=== PATIENT | male | born 1985 | race Caucasian/White ===

== ENCOUNTER 2019-12-15 12:19 | Emergency (ER) | payer MEDICARE ==
[~2019-12-15] VITALS: Ht 170 cm; Wt 67.0 kg
--- NOTE | 2019-12-15 12:31 | ED General ---
General Chief Complaint: Male Reproductive Stated Complaint: INTOXICATION Source of Information: Patient, EMS Exam Limitations: No Limitations History of Present Illness Date Seen by Provider: Dec 15, 2019 Time Seen by Provider: 12:28 Initial Comments To ER per EMS from home with reports of red semen. He noticed this yesterday when masturbating. Upon EMS arrival he was also noted to be intoxicated and states he would like detox. States that he drinks beer, not hard liquor and is unable to tell me how much she drinks every day but believes that he said more than 12 beers already today. He denies any pelvic pain, denies any injury or trauma to the pelvic region, denies any history of putting anything in his ureth ra. Timing/Duration: 1-2 Days Severity: Moderate Associated Systoms: No Nausea/Vomiting Allergies and Home Medications Allergies Coded Allergies: No Known Drug Allergies (Unverified , 12/15/19) Home Medications Doxycycline Hyclate 100 Mg Tablet, 100 MG PO BID Prescribed by: BHARATH DOUGLASS on 12/15/19 1401 Patient Home Medication List Home Medication List Reviewed: Yes Review of Systems Review of Systems Constitutional: see HPI; No chills, No fever EENTM: see HPI Respiratory: no symptoms reported Cardiovascular: no symptoms reported Genitourinary: see HPI, other (hematospermia) Musculoskeletal: no symptoms reported Skin: no symptoms reported Psychiatric/Neurological: No Symptoms Reported Hematologic/Lymphatic: No Symptoms Reported Immunological/Allergic: no symptoms reported Physical Exam Vital Signs Vital Signs - First Documented 12/15/19 12:25 Temp 36.8 Pulse 96 Resp 20 B/P (MAP) 145/102 (116) Pulse Ox 99 O2 Delivery Room Air Capillary Refill : Height, Weight, BMI Height: '" Weight: lbs. oz. kg; BMI Method: General Appearance: No Apparent Distress, WD/WN, Other (immediately upon arrival to ER he requests "something for panic".) Eyes: Bilateral Eye Normal Inspection, Bilateral Eye PERRL, Bilateral Eye EOMI HEENT: PERRL/EOMI, TMs Normal Neck: Full Range of Motion, Normal Inspection Respiratory: Normal Breath Sounds, No Accessory Muscle Use, No Respiratory Distress Cardiovascular: Regular Rate, Rhythm, Normal Peripheral Pulses Gastrointestinal: Normal Bowel Sounds, Non Tender, Soft Genital/Rectal: Other (genital exam done with Joselito BONILLA at the bedside, patient only has 1 testicle which is believed to be the right testicle. He states that he had one of them removed following and "bladder infection". The testicle is normal size and without tenderness to palpation.) Extremity: Normal Capillary Refill, Normal Inspection Neurologic/Psychiatric: Alert, Oriented x3 Skin: Normal Color, Warm/Dry Progress/Results/Core Measures Suspected Sepsis SIRS Temperature: Pulse: Respiratory Rate: Laboratory Tests 12/15/19 12:30: White Blood Count 5.5 Blood Pressure / Mean: Laboratory Tests 12/15/19 12:30: Creatinine 0.79, INR Comment 0.8, Platelet Count 244, Total Bilirubin 0.3 Results/Orders Lab Results Laboratory Tests Test 12/15/19 12:30 12/15/19 12:40 Range/Units White Blood Count 5.5 4.3-11.0 10^3/uL Red Blood Count 4.51 4.35-5.85 10^6/uL Hemoglobin 15.3 13.3-17.7 G/DL Hematocrit 45 40-54 % Mean Corpuscular Volume 100 H 80-99 FL Mean Corpuscular Hemoglobin 34 25-34 PG Mean Corpuscular Hemoglobin Concent 34 32-36 G/DL Red Cell Distribution Width 11.9 10.0-14.5 % Platelet Count 244 130-400 10^3/uL Mean Platelet Volume 8.6 7.4-10.4 FL Neutrophils (%) (Auto) 59 42-75 % Lymphocytes (%) (Auto) 29 12-44 % Monocytes (%) (Auto) 10 0-12 % Eosinophils (%) (Auto) 0 0-10 % Basophils (%) (Auto) 1 0-10 % Neutrophils # (Auto) 3.3 1.8-7.8 X 10^3 Lymphocytes # (Auto) 1.6 1.0-4.0 X 10^3 Monocytes # (Auto) 0.6 0.0-1.0 X 10^3 Eosinophils # (Auto) 0.0 0.0-0.3 10^3/uL Basophils # (Auto) 0.1 0.0-0.1 10^3/uL Prothrombin Time 11.5 L 12.2-14.7 SEC INR Comment 0.8 0.8-1.4 Sodium Level 138 135-145 MMOL/L Potassium Level 4.0 3.6-5.0 MMOL/L Chloride Level 99 98-107 MMOL/L Carbon Dioxide Level 22 21-32 MMOL/L Anion Gap 17 H 5-14 MMOL/L Blood Urea Nitrogen 12 7-18 MG/DL Creatinine 0.79 0.60-1.30 MG/DL Estimat Glomerular Filtration Rate > 60 BUN/Creatinine Ratio 15 Glucose Level 84 70-105 MG/DL Calcium Level 8.8 8.5-10.1 MG/DL Corrected Calcium 8.5-10.1 MG/DL Total Bilirubin 0.3 0.1-1.0 MG/DL Aspartate Amino Transf (AST/SGOT) 111 H 5-34 U/L Alanine Aminotransferase (ALT/SGPT) 85 H 0-55 U/L Alkaline Phosphatase 99 40-136 U/L Total Protein 7.6 6.4-8.2 GM/DL Albumin 4.6 H 3.2-4.5 GM/DL Serum Alcohol 398 *H <10 MG/DL Urine Color YELLOW Urine Clarity CLEAR Urine pH 7.0 5-9 Urine Specific Simpson <=1.005 1.016-1.022 Urine Protein NEGATIVE NEGATIVE Urine Glucose (UA) NEGATIVE NEGATIVE Urine Ketones NEGATIVE NEGATIVE Urine Nitrite NEGATIVE NEGATIVE Urine Bilirubin NEGATIVE NEGATIVE Urine Urobilinogen 0.2 < = 1.0 MG/DL Urine Leukocyte Esterase NEGATIVE NEGATIVE Urine RBC (Auto) NEGATIVE NEGATIVE Urine RBC NONE /HPF Urine WBC NONE /HPF Urine Crystals NONE /LPF Urine Bacteria NEGATIVE /HPF Urine Casts NONE /LPF Urine Mucus NEGATIVE /LPF Urine Culture Indicated NO My Orders Orders - BHARATH DOUGLASS APRN Cbc With Automated Diff (12/15/19 12:26) Comprehensive Metabolic Panel (12/15/19 12:26) Alcohol (12/15/19 12:26) Ua Culture If Indicated (12/15/19 12:26) Neis Javan Dna Urine Test (12/15/19 12:26) Chlamydia Trachomatis Urine (12/15/19 12:26) Ed Iv/Invasive Line Start (12/15/19 12:26) Protime With Inr (12/15/19 12:26) Alprazolam Tablet (Xanax Tablet) (12/15/19 12:45) Us Scrotum (Testicle) [id number] (12/15/19 12:39) Lactated Ringers (Lr 1000 Ml Iv Solution (12/15/19 13:15) Vital Signs/I&O 12/15/19 12:25 Temp 36.8 Pulse 96 Resp 20 B/P (MAP) 145/102 (116) Pulse Ox 99 O2 Delivery Room Air Capillary Refill : Diagnostic Imaging Comments NAME: [facility] REC#: [id number] PT STATUS: REG ER : 1985 PHYSICIAN: BHARATH DOUGLASS APRN ADMIT DATE: 12/15/19/ER Signed Date of Exam:12/15/19 US SCROTUM (Testicle) [id number] PROCEDURE: US Scrotum. TECHNIQUE: Multiple real-time grayscale images were obtained over the scrotum in various projections bilaterally. INDICATION: Blood in semen. COMPARISON: None available. FINDINGS: The left testicle and left epididymis are not visualized, surgically absent per provided history. The right testicle measures 4.1 x 1.7 x 2.4 cm. The right testicle demonstrates slightly heterogeneous echotexture without discrete intratesticular mass. Some though minimal blood flow is identified within the right testicle. The right epididymis is unremarkable. No significant hydrocele. No significant varicocele. IMPRESSION: Mildly heterogeneous echotexture of the right testicle without intratesticular mass. Blood flow within the right testicle does appear to be present though slightly decreased when compared to normal. Left orchiectomy. Dictated by: Dictated on workstation # [id number] Dict: 12/15/19 1343 Trans: 12/15/19 1350 [facility] [id number] Interpreted by: BEKAH CONNER MD Electronically signed by: BEKAH CONNER MD 12/15/19 1350 Departure Communication (Admissions) 1355-patient ripped out his IV began screaming and states he does not want to stay here any longer. He is screaming and yelling cursing at staff and ran out of the emergency room. Ultrasound does show reduced flow to the right testicle. Discussed with him the importance of following up on the results of this and not bleeding. He insisted on leaving but he is intoxicated because he is at risk of serious permanent danger because of this reduced flow to the testicle police were called. [address] Thomas, recommends Bactrim DS, repeat ultrasound in 3 weeks.- [id number]-[facility] here, we will transport home via logistic care which is [place] [employer]. Patient is sitting are waiting room eating chips waiting on them to arrive. Impression Primary Impression: Hematospermia Additional Impression: Alcohol intoxication Disposition: 01 HOME, SELF-CARE Condition: Stable Departure-Patient Inst. Decision time for Depature: 13:59 Add. Discharge Instructions: 1. Take antibiotics as directed 2. Follow-up with [facility] for a recheck on the ultrasound in about 3 weeks. Return to ER in the meantime for any pain worsening symptoms or other concerns. All discharge instructions reviewed with patient and/or family. Voiced understanding. Scripts Doxycycline Hyclate (Doxycycline Hyclate) 100 Mg Tablet 100 MG PO BID, #20 TAB 0 Refills Prov: BHARATH DOUGLASS APRN 12/15/19 Copy Copies To 1: CURRY FUNG PETER J APRN Dec 15, 2019 12:31
[2019-12-15 12:43] LABS: BASOPHILS # (AUTO) 0.1 10^3/uL (0.0-0.1); BASOPHILS % (AUTO) 1 % (0-10); EOSINOPHILS % (AUTO) 0 % (0-10); HEMATOCRIT 45 % (40-54); HEMOGLOBIN 15.3 G/DL (13.3-17.7); LYMPHOCYTES # (AUTO) 1.6 X 10^3 (1.0-4.0); LYMPHOCYTES % (AUTO) 29 % (12-44); MEAN CORPUSCULAR HEMOGLOBIN 34 PG (25-34); MEAN CORPUSCULAR HGB CONC 34 G/DL (32-36); MEAN CORPUSCULAR VOLUME 100 FL (80-99); MEAN PLATELET VOLUME 8.6 FL (7.4-10.4); MONOCYTES # (AUTO) 0.6 X 10^3 (0.0-1.0); MONOCYTES % (AUTO) 10 % (0-12); NEUTROPHILS # (AUTO) 3.3 X 10^3 (1.8-7.8); NEUTROPHILS % (AUTO) 59 % (42-75); PLATELET COUNT 244 10^3/uL (130-400); RED CELL DISTRIBUTION WIDTH 11.9 % (10.0-14.5); WHITE BLOOD COUNT 5.5 10^3/uL (4.3-11.0)
[2019-12-15] MEDS ORDERED: ALPRAZolam 0.5 MG (XANAX) TAB PO SCH (12:45)
[2019-12-15 12:52] LABS: BILIRUBIN,URINE NEGATIVE (NEGATIVE); CLARITY,URINE CLEAR; COLOR,URINE YELLOW; GLUCOSE, URINE (UA) NEGATIVE (NEGATIVE); KETONES,URINE NEGATIVE (NEGATIVE); LEUKOCYTE ESTERASE ,URINE NEGATIVE (NEGATIVE); NITRITE,URINE NEGATIVE (NEGATIVE); PROTEIN,URINE NEGATIVE (NEGATIVE)
[2019-12-15 12:54] LABS: INR 0.8 (0.8-1.4); PROTHROMBIN TIME PATIENT 11.5 SEC (12.2-14.7)
[2019-12-15 13:00] LABS: ALANINE AMINOTRANSFERASE 85 U/L (0-55); ALBUMIN 4.6 GM/DL (3.2-4.5); ALKALINE PHOSPHATASE 99 U/L (40-136); BILIRUBIN,TOTAL 0.3 MG/DL (0.1-1.0); BUN/CREATININE RATIO 15; CALCIUM 8.8 MG/DL (8.5-10.1); CARBON DIOXIDE 22 MMOL/L (21-32); CHLORIDE 99 MMOL/L (98-107); CREATININE SERUM 0.79 MG/DL (0.60-1.30); GFR ESTIMATED > 60; GLUCOSE 84 MG/DL (70-105); SODIUM 138 MMOL/L (135-145); TOTAL PROTEIN 7.6 GM/DL (6.4-8.2)
[2019-12-15 13:03] LABS: BACTERIA,URINE NEGATIVE /HPF
[2019-12-15] MEDS ORDERED: LACTATED RINGERS 1,000 ML IV SCH (13:15)
--- NOTE | 2019-12-15 13:45 | NUR ---
PT REQUESTING MORE MEDICATION TO HELP HIM RELAX, THIS RN ADVISED PT THAT PER BHARATH DOUGLASS PT'S ETOH LEVEL TOO HIGH TO ADMINISTER MORE MEDICATION.
[2019-12-15 13:50] VITALS: BP 121/81
--- NOTE | 2019-12-15 13:50 | NUR ---
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
--- NOTE | 2019-12-15 13:50 | NUR ---
PT BEGINS TO TRY TO RIP OFF HIS ID BRACELET AND PULL HIS IV OUT. I ASK THE PT IS HE IS WANTING TO LEAVE AMA TO WHICH HE STATES HE WANTS TO LEAVE BUT HE WANTS TO KNOW WHAT IS GOING ON. I ADVISED HIM IF HE STAYS THAT WE WILL BE ABLE TO SEE WHAT THE ULTRA SOUND RESULTS ARE BUT IT WILL BE A LITTLE BIT. PT STATES HE HAS ALREADY BEEN HERE 4 HOURS AND HE IS TIRED OF WAITING (AT THE TIME PT HAD BEEN IN THE ER 1 HOUR AND 29 MIN). PT STATED HE WAS NOT HERE FOR PILLS BUT REPEATED WAS ASKING FOR MORE MEDICATION. PT SAID HE NEEDED TO CALL FOR A RIDE AND THAT IT WOULD BE AN HOUR FOR THEM TO GET HERE TO WHICH I STATED I WOULD GET HIM A PHONE TO CALL FOR A RIDE AND HE COULD WAIT FOR THE RESULTS. PT AGAIN STARTED TO PULL AT HIS IV LINE SO I PUT ON GLOVES AND DC'D HIS IV. BHARATH DOUGLASS ENTERED THE ROOM AND BEGAN TO TRY TO GET THE PT TO TRY TO DE-ESCALATE THE SITUATION. PT BEGAN YELLING AND CURSING AT THIS RN HE WAS SLOWLY WALKING OUT OF THE ER. AT THAT POINT I CALL FOR JHONNY TO RESPOND BECAUSE THE PT SEEMED LIKE HE MIGHT GET VIOLENT. PT CONTINUED TO YELL ON HIS WAY OUT.
--- NOTE | 2019-12-15 13:50 | Diagnostic Imaging Report ---
PROCEDURE: US Scrotum. TECHNIQUE: Multiple real-time grayscale images were obtained over the scrotum in various projections bilaterally. INDICATION: Blood in semen. COMPARISON: None available. FINDINGS: The left testicle and left epididymis are not visualized, surgically absent per provided history. The right testicle measures 4.1 x 1.7 x 2.4 cm. The right testicle demonstrates slightly heterogeneous echotexture without discrete intratesticular mass. Some though minimal blood flow is identified within the right testicle. The right epididymis is unremarkable. No significant hydrocele. No significant varicocele. IMPRESSION: Mildly heterogeneous echotexture of the right testicle without intratesticular mass. Blood flow within the right testicle does appear to be present though slightly decreased when compared to normal. Left orchiectomy. Dictated by: Dictated on workstation # [id number]
--- NOTE | 2019-12-15 13:52 | NUR ---
PT REFUSED TO SIGN AMA PAPERWORK.
--- NOTE | 2019-12-15 13:55 | NUR ---
MARNI, LABORATORY GENETICIST AT FRONT WINDOW, ADVISED THAT SHE TRIED TO CALL THE TRANSPORT NUMBER FOR THE PT AND HE HUNG UP THE PHONE AND CONTINUED TO ACT UP. MARNI STATED SHE DID NOT FEEL COMFORTABLE WITH THE PT ACTING OUT AND YELLING IN THE WAITING ROOM.
[2019-12-15] MEDS ORDERED: DOXY100T2 PO (14:01)
--- NOTE | 2019-12-15 14:20 | NUR ---
PPD OFFICER HAVE BEEN TALKING WITH PT FOR A FEW MINUTES. THIS RN WENT OUT AND TOLD THE PT THAT AN RX HAD BEEN CALLED TO THE [facility] FOR HIM TO WHICH HE THANKED ME AND SAID HE BELIEVED WE JUST HAD A MIS-UNDERSTANDING. THIS RN BUMPED FISTS WITH THE PT AND ADVISED EVERYTHING WAS OK. AFTER TALKING WITH PPD IT WAS AGREED THAT THE PT COULD STAY IN THE WAITING ROOM LONG HE CONTINUED TO ACT NICE. THIS RN CALLED THE NUMBER GIVEN BY PT AND CONFIRMED THE TRANSPORT FOR THE PT. PT SITTING QUIETLY EATING SNACKS WITH NO NEEDS AT THIS TIME.
--- OUTSIDE RECORDS SUMMARY | 2019-12-17 06:23 | XMS REPORT | Continuity of Care Document ---
Author Organization Unknown Address Unknown Phone Unavailable Allergies Active Description Code Type Severity Reaction Onset Reported/Identified Relationship to Patient Clinical Status Yes No Known Drug Allergies [id number] Drug Allergy Unknown N/A 12/15/2019 Medications There is no data. Problems There is no data. Procedures There is no data. Results Test Result Range CULTURE, URINE - 09/06/19 13:35 CULTURE, URINE, ROUTINE SEE NOTE NRG Complete blood count (CBC) with automate d white blood cell (WBC) differential - 12/15/19 12:30 Blood leukocytes automated count (number/volume) 5.5 10*3/uL 4.3-11.0 Blood erythrocytes automated count (number/volume) 4.51 10*6/uL 4.35-5.85 Venous blood hemoglobin measurement (mass/volume) 15.3 g/dL 13.3-17.7 Blood hematocrit (volume fraction) 45 % 40-54 Automated erythrocyte mean corpuscular volume 100 [foz_us] 80-99 Automated erythrocyte mean corpuscular h emoglobin (mass per erythrocyte) 34 pg 25-34 Automated erythrocyte mean corpuscular h emoglobin concentration measurement (mass/volume) 34 g/dL 32-36 Automated erythrocyte distribution width ratio 11. 9 % 10.0- 14.5 Automated blood platelet count (count/volume) 244 10*3/uL 130-400 Automated blood platelet mean volume measurement 8.6 [foz_us] 7.4-10.4 Automated blood neutrophils/100 leukocytes 59 % 42-75 Automated blood lymphocytes/100 leukocytes 29 % 12-44 Blood monocytes/100 leukocytes 10 % 0-12 Automated blood eosinophils/100 leukocytes 0 % 0-10 Automated blood basophils/100 leukocytes 1 % 0-10 Blood neutrophils automated count (number/volume) 3.3 10*3 1.8-7.8 Blood lymphocytes automated count (number/volume) 1.6 10*3 1.0-4.0 Blood monocytes automated count (number/volume) 0. 6 10*3 0.0-1.0 Automated eosinophil count 0.0 10*3/uL 0 .0-0.3 Automated blood basophil count (count/volume) 0.1 10*3/uL 0.0-0.1 PT panel in platelet poor plasma by coag ulation assay - 12/15/19 12:30 Prothrombin time (PT) in platelet poor plasma by coagu lation assay 11.5 s 12.2-14.7 INR in platelet poor plasma or blood by coagulation as say 0.8 0.8-1.4 Comprehensive metabolic panel - 12/15/19 12:30 Serum or plasma sodium measurement (moles/volume) 138 mmol/L 135-145 Serum or plasma potassium measurement (moles/volume) 4.0 mmol/L 3.6-5.0 Serum or plasma chloride measurement (moles/volume) 99 mmol/L 98-107 Carbon dioxide 22 mmol/L 21-32 Serum or plasma anion gap determination (moles/volume) 17 mmol/L 5-14 Serum or plasma urea nitrogen measurement (mass/volume ) 12 mg/dL 7-18 Serum or plasma creatinine measurement (mass/volume) 0.79 mg/dL 0.60-1.30 Serum or plasma urea nitrogen/creatinine mass ratio 15 NRG Serum or plasma creatinine measurement w ith calculation of estimated glomerular filtration rate > NRG Serum or plasma glucose measurement (mass/volume) 84 mg/dL 70-105 Serum or plasma calcium measurement (mass/volume) 8.8 mg/dL 8.5-10.1 Serum or plasma total bilirubin measurement (mass/volu me) 0.3 mg/dL 0.1-1.0 Serum or plasma alkaline phosphatase carter surement (enzymatic activity/volume) 99 U/L 40-136 Serum or plasma aspartate aminotransfera se measurement (enzymatic activity/volume) 111 U/L 5-34 Serum or plasma alanine aminotransferase measurement (enzymatic activity/volume) 85 U/L 0-55 Serum or plasma protein measurement (mass/volume) 7.6 g/dL 6.4-8.2 Serum or plasma albumin measurement (mass/volume) 4.6 g/dL 3.2-4.5 Serum or plasma ethanol measurement (mas s/volume) - 12/15/19 12:30 Serum or plasma ethanol measurement (mass/volume) 398 mg/dL <10 Complete urinalysis with reflex to cultu re - 12/15/19 12:40 Urine color determination YELLOW NRG Urine clarity determination CLEAR NR G Urine pH measurement by test strip 7.0 5-9 Specific gravity of urine by test strip <= 1.016-1.022 Urine protein assay by test strip, semi-quantitative NEGATIVE NEGATIVE Urine glucose detection by automated test strip NE GATIVE NEGATIVE Erythrocytes detection in urine sediment by light micr oscopy NEGATIVE NEGATIVE Urine ketones detection by automated test strip NE GATIVE NEGATIVE Urine nitrite detection by test strip NEGATIVE NEGATIVE Urine total bilirubin detection by test strip NEGA TIVE NEGATIVE Urine urobilinogen measurement by automated test strip (mass/volume) 0.2 mg/dL < = 1.0 Urine leukocyte esterase detection by dipstick NEG ATIVE NEGATIVE Automated urine sediment erythrocyte cou nt by microscopy (number/high power field) NONE NRG Automated urine sediment leukocyte count by microscopy (number/high power field) NONE NRG Bacteria detection in urine sediment by light microsco py NEGATIVE NRG Crystals detection in urine sediment by light microsco py NONE NRG Casts detection in urine sediment by light microscopy NONE NRG Mucus detection in urine sediment by light microscopy NEGATIVE NRG Complete urinalysis with reflex to culture NO NRG Chlamydia DNA amp probe, urine - 0 12:40 Chlamydia DNA amp probe, urine Not Detected Not Detected Urine Neisseria gonorrhoeae DNA assay - 12/15/19 12:40 Gonorrhea amp DNA-urine Not Detected No t Detected Encounters ACCT No. Visit Date/Time Discharge Status Pt. Type Provider Facility Loc./Unit Complaint [id number] 08/18/2019 15:20:00 08/18/2019 23:59: 59 [id number] 09/06/2019 13:00:00 Document Registration [id number] 12/15/2019 12:22:00 020 13:50:00 DIS Emergency BHARATH DOUGLASS APRN Via [facility] ER INTOXICATION [id number] 12/15/2019 12:33:00 Document Registration
== END 2019-12-15 13:50 | disposition left against medical advice (07) ==
LOC: EDUNIT# 12:19 → ER 12:22
DX: R36.1 Hematospermia (principal); F10.129 Alcohol abuse with intoxication, unspecified; Y90.8 Blood alcohol level of 240 mg/100 ml or more
CPT/HCPCS: 36415; 76870; 80053; 80320; 81000; 85025; 85610; 87491; 87591

== ENCOUNTER 2019-12-15 16:18 | Emergency (ER) | payer MEDICARE ==
[~2019-12-15] VITALS: Ht 167.7 cm; Wt 68.5 kg
[~2019-12-15 16:18] MED LIST: DOXY100T2 PO
[2019-12-15 16:26] VITALS: BP 156/87
--- NOTE | 2019-12-15 16:29 | ED General ---
General Chief Complaint: General Problems/Pain Stated Complaint: PANIC ATTACK Source of Information: Patient Exam Limitations: No Limitations History of Present Illness Date Seen by Provider: Dec 15, 2019 Time Seen by Provider: 16:27 Initial Comments To ER with reports of panic attack secondary to a agoraphobia he states. He was here earlier for hematospermia and alcohol intoxication, left AGAINST MEDICAL ADVICE when he was only given one Xanax instead of 2. Timing/Duration: 1-2 Days Severity: Moderate Associated Systoms: Denies Symptoms Allergies and Home Medications Allergies Coded Allergies: No Known Drug Allergies (Unverified , 12/15/19) Home Medications Doxycycline Hyclate 100 Mg Tablet, 100 MG PO BID Prescribed by: BHARATH DOUGLASS on 12/15/19 1401 Patient Home Medication List Home Medication List Reviewed: Yes Review of Systems Review of Systems Constitutional: see HPI EENTM: see HPI Respiratory: no symptoms reported Cardiovascular: no symptoms reported Genitourinary: no symptoms reported Musculoskeletal: no symptoms reported Skin: no symptoms reported Psychiatric/Neurological: See HPI, Anxiety Hematologic/Lymphatic: No Symptoms Reported Immunological/Allergic: no symptoms reported Past Vsvnuuq-Kuntyf-Frmatd Hx Patient Social History Alcohol Beverage of Choice: Beer Type Used: Cigarettes, Electronic/Vapor Recent Foreign Travel: No Contact w/Someone Who Travel: No Recent Hopitalizations: No Seasonal Allergies Seasonal Allergies: Yes Past Medical History Surgeries: Yes ("MY BALLS WERE INFECTED AND I HAD TO AHVE MY GALLBLADDER REMOVED") Gallbladder Respiratory: No Cardiac: No Neurological: No Genitourinary: Yes Bladder Infection Gastrointestinal: Yes Chronic Constipation Musculoskeletal: Yes Scoliosis Endocrine: No HEENT: No Cancer: No Psychosocial: No Integumentary: No Physical Exam Vital Signs Vital Signs - First Documented 12/15/19 16:26 Temp 36.6 Pulse 124 Resp 19 B/P (MAP) 156/87 (110) O2 Delivery Room Air Capillary Refill : Height, Weight, BMI Height: '" Weight: lbs. oz. kg; 23.00 BMI Method: General Appearance: No Apparent Distress, WD/WN, Anxious HEENT: PERRL/EOMI, TMs Normal Respiratory: No Accessory Muscle Use, No Respiratory Distress Cardiovascular: Regular Rate, Rhythm, Normal Peripheral Pulses Gastrointestinal: Non Tender, Soft Extremity: Normal Capillary Refill Neurologic/Psychiatric: Alert, Oriented x3 Skin: Normal Color, Warm/Dry Progress/Results/Core Measures Suspected Sepsis SIRS Temperature: Pulse: Respiratory Rate: Blood Pressure / Mean: Results/Orders My Orders Orders - BHARATH DOUGLASS APRN Diphenhydramine Tablet (Benadryl Tablet) (12/15/19 16:30) Medications Given in ED Current Medications Medications Dose Ordered Sig/Sean Route Start Time Stop Time Status Last Admin Dose Admin Diphenhydramine HCl 50 mg ONCE ONCE PO 12/15/19 16:30 12/15/19 16:31 DC 12/15/19 16:33 50 MG Vital Signs/I&O 12/15/19 16:26 Temp 36.6 Pulse 124 Resp 19 B/P (MAP) 156/87 (110) O2 Delivery Room Air Capillary Refill : Departure Impression Primary Impression: Anxiety Disposition: 01 HOME, SELF-CARE Condition: Stable Departure-Patient Inst. Decision time for Depature: 16:39 Referrals: NO,LOCAL PHYSICIAN (PCP) Primary Care Physician Patient Instructions: Anxiety, Adult (DC) BHARATH DOUGLASS APRN Dec 15, 2019 16:29
[2019-12-15] MEDS ORDERED: diphenhydrAMINE 25 MG TAB (BENADRYL) PO ONE (16:30)
--- OUTSIDE RECORDS SUMMARY | 2019-12-17 13:35 | XMS REPORT | Continuity of Care Document ---
Author Organization Unknown Address Unknown Phone Unavailable Allergies Active Description Code Type Severity Reaction Onset Reported/Identified Relationship to Patient Clinical Status Yes No Known Drug Allergies [id number] Drug Allergy Unknown N/A 12/15/2019 Medications There [...] Status Pt. Type Provider Facility Loc./Unit Complaint [id number] 08/18/2019 15:20:00 08/18/2019 23:59: 59 [id number] 09/06/2019 13:00:00 Document Registration [id number] 12/15/2019 12:22:00 020 13:50:00 DIS Emergency BHARATH DOUGLASS APRN [facility] ER INTOXICATION [id number] 12/15/2019 12:33:00 Document Registration
== END 2019-12-15 16:42 | disposition home or self-care (01) ==
LOC: EDUNIT# 16:18 → ER 16:20
DX: F41.9 Anxiety disorder, unspecified (principal)
CPT/HCPCS: 99283

== ENCOUNTER 2020-12-26 11:13 | Day surgery (SDC) | payer MEDICARE, MEDICAID ==
[~2020-12-26] VITALS: Ht 165.2 cm; Wt 70.0 kg
[2020-12-26] MEDS ORDERED: LORazepam INJ 2 MG/ML (ATIVAN) VIAL IVP ONE (11:30)
[2020-12-26] MEDS ORDERED: PANTOPRAZOLE 40 MG (PROTONIX) VIAL IV ONE (11:30)
[2020-12-26] MEDS ORDERED: FAMOTIDINE 20MG/2ML IV (PEPCID) IVP ONE (11:30)
[2020-12-26 11:34] LABS: CLARITY,URINE CLEAR; COLOR,URINE ORANGE; GLUCOSE, URINE (UA) NEGATIVE (NEGATIVE); KETONES,URINE 1+ (NEGATIVE); LEUKOCYTE ESTERASE ,URINE NEGATIVE (NEGATIVE); NITRITE,URINE NEGATIVE (NEGATIVE); PH,URINE 6.5 (5-9); PROTEIN,URINE 1+ (NEGATIVE)
[2020-12-26 11:37] LABS: BASOPHILS % (AUTO) 1 % (0-10); EOSINOPHILS % (AUTO) 0 % (0-10); HEMATOCRIT 37 % (40-54); HEMOGLOBIN 12.9 g/dL (13.3-17.7); LYMPHOCYTES # (AUTO) 0.7 10^3/uL (1.0-4.0); LYMPHOCYTES % (AUTO) 16 % (12-44); MEAN CORPUSCULAR HEMOGLOBIN 34 pg (25-34); MEAN CORPUSCULAR HGB CONC 35 g/dL (32-36); MEAN CORPUSCULAR VOLUME 98 fL (80-99); MEAN PLATELET VOLUME 9.3 fL (9.0-12.2); MONOCYTES # (AUTO) 0.4 10^3/uL (0.0-1.0); MONOCYTES % (AUTO) 9 % (0-12); NEUTROPHILS % (AUTO) 73 % (42-75); PLATELET COUNT 182 10^3/uL (130-400); WHITE BLOOD COUNT 4.1 10^3/uL (4.3-11.0)
[2020-12-26 11:43] LABS: BACTERIA,URINE NEGATIVE /HPF; BILIRUBIN,URINE 2+ (NEGATIVE); WBC,URINE RARE /HPF
[2020-12-26 11:53] LABS: ALBUMIN 3.1 GM/DL (3.2-4.5); CHLORIDE 95 MMOL/L (98-107); POTASSIUM 4.1 MMOL/L (3.6-5.0); SODIUM 134 MMOL/L (135-145)
[2020-12-26 11:54] LABS: CALCIUM 7.9 MG/DL (8.5-10.1)
[2020-12-26 11:55] LABS: GLUCOSE 141 MG/DL (70-105); INR 0.9 (0.8-1.4); TOTAL PROTEIN 5.6 GM/DL (6.4-8.2)
[2020-12-26 11:56] LABS: CARBON DIOXIDE 22 MMOL/L (21-32)
[2020-12-26 11:57] LABS: BILIRUBIN,TOTAL 3.3 MG/DL (0.1-1.0)
[2020-12-26 11:58] LABS: ALKALINE PHOSPHATASE 100 U/L (40-136)
[2020-12-26 11:59] LABS: CREATININE SERUM 1.13 MG/DL (0.60-1.30); GFR ESTIMATED > 60
[2020-12-26 12:00] LABS: BUN/CREATININE RATIO 18
[2020-12-26 12:02] LABS: ALANINE AMINOTRANSFERASE 324 U/L (0-55); MAGNESIUM 1.5 MG/DL (1.6-2.4)
[2020-12-26 12:03] LABS: LIPASE 38 U/L (8-78)
--- NOTE | 2020-12-26 12:42 | ED GI ---
General Chief Complaint: General Problems/Pain Stated Complaint: ETOH Nursing Triage Note: TO ED PER [facility] PATIENT DRINKS 12 BEERS DAILY AND BEEN VOMITING FOR MONTHS THIS AM STARTED HAVING BLACK TAREY STOOL AND NOTICED DARK IN HIS VOMIT Sepsis Screen: No Definite Risk Source of Information: Patient Exam Limitations: No Limitations History of Present Illness Date Seen by Provider: Dec 26, 2020 Time Seen by Provider: 11:15 Initial Comments This 35-year-old man presents to the emergency room via EMS with complaints of coffee-ground emesis and black tarry stools that started in the night. He has been vomiting almost every morning for couple of months. He typically drinks about 10 beers per day. He reports about a month ago he was able to taper down and quit drinking for about 2 weeks. He has been drinking heavily again for the past couple of weeks. He has not had any alcohol today and he is starting to withdraw. Vital signs are stable but he does have tremors. He reports having an EGD many years ago but does not recall being told he had any pathology. Allergies and Home Medications Allergies Coded Allergies: No Known Drug Allergies (Unverified , 12/15/19) Home Medications Doxycycline Hyclate 100 Mg Tablet, 100 MG PO BID Prescribed by: BHARATH DOUGLASS on 12/15/19 1401 Patient Home Medication List Home Medication List Reviewed: Yes Review of Systems Review of Systems Constitutional: no symptoms reported EENTM: No Symptoms Reported Respiratory: No Symptoms Reported Cardiovascular: No Symptoms Reported Gastrointestinal: See HPI Genitourinary: No Symptoms Reported Musculoskeletal: no symptoms reported Skin: no symptoms reported Psychiatric/Neurological: See HPI Endocrine: No Symptoms Reported Hematologic/Lymphatic: No Symptoms Reported Past Xmjaeyy-Zurfnx-Mqqpsa Hx Past Med/Social Hx: Reviewed Nursing Past Med/Soc Hx Patient Social History Alcohol Use: Regular Use Number of Drinks Today: AA Alcohol Beverage of Choice: Beer Smoking Status: Current Everyday Smoker Type Used: Cigarettes, Electronic/Vapor Recent Infectious Disease Expo: No Recent Hopitalizations: No Seasonal Allergies Seasonal Allergies: Yes Past Medical History Surgeries: Yes ("MY BALLS WERE INFECTED AND I HAD TO AHVE MY GALLBLADDER REMOVED") Gallbladder Respiratory: No Cardiac: Yes Hypertension Neurological: No Genitourinary: Yes Bladder Infection Gastrointestinal: Yes Gastroesophageal Reflux, Chronic Constipation Musculoskeletal: Yes Scoliosis Endocrine: No HEENT: No Cancer: No Psychosocial: Yes (Alcohol dependence) Integumentary: No Physical Exam Vital Signs Vital Signs - First Documented 12/26/20 11:15 Temp 36.1 Pulse 86 Resp 18 B/P (MAP) 110/75 (87) Pulse Ox 100 O2 Delivery Room Air Capillary Refill : Less Than 3 Seconds Height/Weight/BMI Height: '" Weight: lbs. oz. 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, no motor/sensory deficits, alert, normal mood/affect, oriented x 3, other (Tremor) Skin: normal color, warm/dry Progress/Results/Core Measures Results/Orders Lab Results Laboratory Tests Test 12/26/20 11:30 Range/Units White Blood Count 4.1 L 4.3-11.0 10^3/uL Red Blood Count 3.82 L 4.30-5.52 10^6/uL Hemoglobin 12.9 L 13.3-17.7 g/dL Hematocrit 37 L 40-54 % Mean Corpuscular Volume 98 80-99 fL Mean Corpuscular Hemoglobin 34 25-34 pg Mean Corpuscular Hemoglobin Concent 35 32-36 g/dL Red Cell Distribution Width 13.9 10.0-14.5 % Platelet Count 182 130-400 10^3/uL Mean Platelet Volume 9.3 9.0-12.2 fL Immature Granulocyte % (Auto) 1 % Neutrophils (%) (Auto) 73 42-75 % Lymphocytes (%) (Auto) 16 12-44 % Monocytes (%) (Auto) 9 0-12 % Eosinophils (%) (Auto) 0 0-10 % Basophils (%) (Auto) 1 0-10 % Neutrophils # (Auto) 3.0 1.8-7.8 10^3/uL Lymphocytes # (Auto) 0.7 L 1.0-4.0 10^3/uL Monocytes # (Auto) 0.4 0.0-1.0 10^3/uL Eosinophils # (Auto) 0.0 0.0-0.3 10^3/uL Basophils # (Auto) 0.0 0.0-0.1 10^3/uL Immature Granulocyte # (Auto) 0.0 0.0-0.1 10^3/uL Prothrombin Time 13.0 12.2-14.7 SEC INR Comment 0.9 0.8-1.4 Urine Color ORANGE Urine Clarity CLEAR Urine pH 6.5 5-9 Urine Specific [place] 1.025 H 1.016-1.022 Urine Protein 1+ H NEGATIVE Urine Glucose (UA) NEGATIVE NEGATIVE Urine Ketones 1+ H NEGATIVE Urine Nitrite NEGATIVE NEGATIVE Urine Bilirubin 2+ H NEGATIVE Urine Urobilinogen 1.0 < = 1.0 MG/DL Urine Leukocyte Esterase NEGATIVE NEGATIVE Urine RBC (Auto) NEGATIVE NEGATIVE Urine RBC NONE /HPF Urine WBC RARE /HPF Urine Squamous Epithelial Cells NONE /HPF Urine Crystals NONE /LPF Urine Bacteria NEGATIVE /HPF Urine Casts PRESENT /LPF Urine Hyaline Casts 2-5 H /LPF Urine Mucus LARGE H /LPF Urine Culture Indicated NO Sodium Level 134 L 135-145 MMOL/L Potassium Level 4.1 3.6-5.0 MMOL/L Chloride Level 95 L 98-107 MMOL/L Carbon Dioxide Level 22 21-32 MMOL/L Anion Gap 17 H 5-14 MMOL/L Blood Urea Nitrogen 20 H 7-18 MG/DL Creatinine 1.13 0.60-1.30 MG/DL Estimat Glomerular Filtration Rate > 60 BUN/Creatinine Ratio 18 Glucose Level 141 H 70-105 MG/DL Calcium Level 7.9 L 8.5-10.1 MG/DL Corrected Calcium 8.6 8.5-10.1 MG/DL Magnesium Level 1.5 L 1.6-2.4 MG/DL Total Bilirubin 3.3 H 0.1-1.0 MG/DL Aspartate Amino Transf (AST/SGOT) 433 H 5-34 U/L Alanine Aminotransferase (ALT/SGPT) 324 H 0-55 U/L Alkaline Phosphatase 100 40-136 U/L C-Reactive Protein High Sensitivity 0.06 0.00-0.50 MG/DL Total Protein 5.6 L 6.4-8.2 GM/DL Albumin 3.1 L 3.2-4.5 GM/DL Lipase 38 8-78 U/L Serum Alcohol < 10 <10 MG/DL My Orders Orders - GEOVANNI LAW MD Alcohol (12/26/20 11:21) Cbc With Automated Diff (12/26/20 11:21) Comprehensive Metabolic Panel (12/26/20 11:21) Hs C Reactive Protein (12/26/20 11:21) Lipase (12/26/20 11:21) Magnesium (12/26/20 11:21) Protime With Inr (12/26/20 11:21) Ua Culture If Indicated (12/26/20 11:21) Lorazepam Injection (Ativan Injection) (12/26/20 11:30) Famotidine Injection (Pepcid Injection) (12/26/20 11:30) Pantoprazole Injection (Protonix Injecti (12/26/20 11:30) Medications Given in ED Current Medications Medications Dose Ordered Sig/Sean Route Start Time Stop Time Status Last Admin Dose Admin Famotidine 20 mg ONCE ONCE IVP 12/26/20 11:30 12/26/20 11:31 DC 12/26/20 11:36 20 MG Lorazepam 2 mg ONCE ONCE IVP 12/26/20 11:30 12/26/20 11:31 DC 12/26/20 11:32 2 MG Pantoprazole 80 mg ONCE ONCE IV 12/26/20 11:30 12/26/20 11:31 DC 12/26/20 11:36 80 MG Vital Signs/I&O 12/26/20 12/26/20 11:15 12:12 Temp 36.1 Pulse 86 98 Resp 18 18 B/P (MAP) 110/75 (87) 113/75 (88) Pulse Ox 100 97 O2 Delivery Room Air Room Air Blood Pressure Mean: 88 Progress Progress Note : Time: 12:47 Progress Note Patient was seen and examined. He was given Ativan 2 mg IV for withdrawal. IV fluids were infused. He was treated with Protonix 80 mg and Pepcid 20 mg. Zofran was administered by EMS. He had no further vomiting or melena while in the ER. I am a little concerned about this patient due to subjective evidence of GI bleed through emesis and stool in combination with his symptoms suggestive of alcohol withdrawal. I have suggested admission for observation as patient requested. This was discussed with Dr. Catherine and Dr. Méndez who are agreeable. Departure Communication (Admissions) Time/Spoke to Admitting Phy: 12:25 Dr. Catherine Time/Spoke to Consulting Phy: 12:30 Dr. Méndez Impression Primary Impression: Coffee ground emesis Additional Impressions: Melena Alcohol withdrawal Qualified Codes: F10.239 - Alcohol dependence with withdrawal, unspecified Disposition: ADMITTED INPATIENT Condition: Improved Admissions Decision to Admit Reason: Admit from ER (General) Decision to Admit/Date: Dec 26, 2020 Time/Decision to Admit Time: 12:25 Departure-Patient Inst. Referrals: NO,LOCAL PHYSICIAN (PCP/Family) Primary Care Physician GEOVANNI LAW MD Dec 26, 2020 12:42
[2020-12-26 13:56] VITALS: BP 116/76
[2020-12-26] MEDS ORDERED: PANT20TA18 PO (14:59)
[2020-12-26] MEDS ORDERED: MULT-1136 PO (14:59)
[2020-12-26] MEDS ORDERED: METO50TA7 PO (14:59)
[2020-12-26] MEDS ORDERED: LISI40TA9 PO (14:59)
[2020-12-26] MEDS ORDERED: BUSP5TAB59 PO (14:59)
[2020-12-26] MEDS ORDERED: TRAZ-227 PO (14:59)
[2020-12-26] MEDS ORDERED: [UNRECOGNIZED DRUG - OTHER] PO (14:59)
[2020-12-26] MEDS ORDERED: [UNRECOGNIZED DRUG - REMARK] PO (14:59)
[2020-12-26] MEDS ORDERED: LORazepam INJ 2 MG/ML (ATIVAN) VIAL IM/IV PRN (15:00)
[2020-12-26] MEDS ORDERED: ONDANSETRON 4 MG/2 ML (SDV) Z0FRAN IVP PRN (15:00)
[2020-12-26] MEDS ORDERED: ONDANSETRON 4 MG/2 ML (SDV) Z0FRAN IV PRN (15:00)
[2020-12-26] MEDS ORDERED: 1/2 NS IV SOLUTION 1,000 ML IV PRN (15:00)
[2020-12-26] MEDS ORDERED: ANTACID SUSP 30 ML UDC (MYLANTA) PO PRN (15:00)
[2020-12-26] MEDS ORDERED: D5 1/2 NS W/KCL 20 MEQ/L 1,000 ML IV SCH (15:00)
[2020-12-26] MEDS ORDERED: SENNA W/DOCUSATE (SENOKOT S) TABLET PO PRN (15:00)
[2020-12-26] MEDS ORDERED: LORazepam 1 MG (ATIVAN) TAB PO PRN (15:00)
[2020-12-26] MEDS ORDERED: LACTATED RINGERS 1,000 ML IV SCH (15:00)
[2020-12-26] MEDS ORDERED: ONDANSETRON 4 MG (ZOFRAN) ORAL DISSOLVE TAB SL PRN (15:00)
[2020-12-26] MEDS ORDERED: D5 1/2 NS 1000 ML IV SOLUTION 1,000 ML IV PRN (15:00)
[2020-12-26 15:21] VITALS: BP 108/67
[2020-12-26] MEDS: LORazepam INJ 2 MG/ML (ATIVAN) VIAL IV PRN ×2 (16:03→17:27)
--- NOTE | 2020-12-26 16:38 | Consultation - Surgery ---
NYLAJEMMA MED STUDENT 12/26/20 1638: History of Present Illness History of Present Illness Patient Consulted On(dusty/time) 12/26/20 16:37 Date Seen by Provider: Dec 26, 2020 Time Seen by Provider: 16:30 History of Present Illness Per ED "This 35-year-old man presents to the emergency room via EMS with complaints of coffee-ground emesis and black tarry stools that started in the night. He has been vomiting almost every morning for couple of months. He typically drinks about 10 beers per day. He reports about a month ago he was able to taper down and quit drinking for about 2 weeks. He has been drinking heavily again for the past couple of weeks. He has not had any alcohol today and he is starting to withdraw. Vital signs are stable but he does have tremors. He reports having an EGD many years ago but does not recall being told he had any pathology." "Patient was seen and examined. He was given Ativan 2 mg IV for withdrawal. IV fluids were infused. He was treated with Protonix 80 mg and Pepcid 20 mg. Zof ran was administered by EMS. He had no further vomiting or melena while in the ER. I am a little concerned about this patient due to subjective evidence of GI bleed through emesis and stool in combination with his symptoms suggestive of alcohol withdrawal. I have suggested admission for observation as patient requested. This was discussed with Dr. Catherine and Dr. Méndez who are agreeable." Patient is sitting up in bed. States that he does not have epigastric pain. States that he feels a fullness that is uncomfortable that he will drink water to try and make himself throw up. States he does get a kind of jolting or sharp pain in his RLQ sometimes that is about a 3 or 4 and radiates throughout that region. States today is the first time he has had tarry stools but he has had coffee ground emesis before about 8 years ago. States he has vomited twice today. States he was scoped and got colonoscopy at the time, said he was told the bleed resolved and he ate soft foods to get better. He does complain of constipation and difficulty voiding. He has a noticeable tremor during interview. Allergies and Home Medications Allergies Coded Allergies: No Known Drug Allergies (Unverified , 3/13/20) Home Medications Buspirone HCl 5 Mg Tablet, 5 MG PO BID, (Reported) Lisinopril 40 Mg Tablet, 40 MG PO DAILY, (Reported) Metoprolol Succinate 50 Mg Tab.er.24h, 50 MG PO DAILY, (Reported) Multivitamin 1 Each Tablet, 1 EACH PO DAILY, (Reported) Pantoprazole Sodium 20 Mg Tablet.dr, 20 MG PO DAILY, (Reported) Trazodone HCl 100 Mg Tablet, 100 MG PO HS, (Reported) [Florajen Pre] , 1 EA PO DAILY, (Reported) [Rhin Allergy ] , 1 EACH PO UD PRN for ALLERGY SYMPTOMS, (Reported) Past Cljoadt-Ausvjh-Osiayt Hx Patient Social History Number of Drinks Today: AA Smoking Status: Current Everyday Smoker Type Used: Cigarettes, Electronic/Vapor Recent Hopitalizations: No Alcohol Use?: Yes (States 10-20 is his norm) Substance type: Nicotine Have you traveled recently?: No Seasonal Allergies Seasonal Allergies: Yes Surgeries History of Surgeries: Yes ("MY BALLS WERE INFECTED AND I HAD TO AHVE MY GALLBLADDER REMOVED") Surgeries: Abdominal (EGD, Colonoscopy x1), Gallbladder, Orthopedic (Jaw ) Respiratory History of Respiratory Disorde: No Cardiovascular History of Cardiac Disorders: Yes Cardiac Disorders: Hypertension Neurological History of Neurological Disord: No Genitourinary History of Genitourinary Disor: Yes Genitourinary Disorders: Bladder Infection Gastrointestinal History of Gastrointestinal Di: Yes Gastrointestinal Disorders: Gastroesophageal Reflux, Chronic Constipation Musculoskeletal History of Musculoskeletal Dis: Yes Musculoskeletal Disorders: Scoliosis Endocrine History of Endocrine Disorders: No HEENT History of HEENT Disorders: No Cancer History of Cancer: No Psychosocial History of Psychiatric Problem: Yes (Alcohol dependence) Behavioral Health Disorders: Depression Integumentary History of Skin or Integumenta: No Family Medical History Significant Family History: Cancer (Skin-Father), Diabetes (Father), Hypertension (Father) Review of Systems-General Constitutional: No chills, No fever EENTM: No vision loss Respiratory: No cough, No hemoptysis, No phlegm, No short of breath Cardiovascular: No chest pain, No edema, No palpitations Gastrointestinal: abdominal pain (RLQ), constipation, hematemesis (Coffe ground), melena, nausea, vomiting (Last Episode this morning) Genitourinary: hesitancy ("Hard to start stream, has to go every 10 mins") Musculoskeletal: No joint pain Skin: No rash Psychiatric/Neurological: Denies Headache; Tremors (Hands) Physical Exam-General Problems Physical Exam Vital Signs Vital Signs - First Documented 12/26/20 11:15 Temp 36.1 Pulse 86 Resp 18 B/P (MAP) 110/75 (87) Pulse Ox 100 O2 Delivery Room Air Capillary Refill : Less Than 3 Seconds General Appearance: no apparent distress Respiratory: chest non-tender, lungs clear, normal breath sounds, no resp iratory distress, no accessory muscle use Cardiovascular: regular rate, rhythm, no edema, no murmur Peripheral Pulses: 2+ Radial Pulses (R), 2+ Radial Pulses (L) Gastrointestinal: normal bowel sounds, non tender, soft Rectal: deferred Extremities: non-tender, no pedal edema, no calf tenderness Neurologic/Psychiatric: alert, oriented x 3 Skin: normal color, warm/dry Data Review Labs Laboratory Tests 12/26/20 11:30: White Blood Count 4.1L, Red Blood Count 3.82L, Hemoglobin 12.9L, Hematocrit 37L, Mean Corpuscular Volume 98, Mean Corpuscular Hemoglobin 34, Mean Corpuscular Hemoglobin Concent 35, Red Cell Distribution Width 13.9, Platelet Count 182, Mean Platelet Volume 9.3, Immature Granulocyte % (Auto) 1, Neutrophils (%) (Auto) 73, Lymphocytes (%) (Auto) 16, Monocytes (%) (Auto) 9, Eosinophils (%) (Auto) 0, Basophils (%) (Auto) 1, Neutrophils # (Auto) 3.0, Lymphocytes # (Auto) 0.7L, Monocytes # (Auto) 0.4, Eosinophils # (Auto) 0.0, Basophils # (Auto) 0.0, Immature Granulocyte # (Auto) 0.0, Prothrombin Time 13.0, INR Comment 0.9, Urine Color ORANGE, Urine Clarity CLEAR, Urine pH 6.5, Urine Specific [place] 1.025H, Urine Protein 1+H, Urine Glucose (UA) NEGATIVE, Urine Ketones 1+H, Urine Nitrite NEGATIVE, Urine Bilirubin 2+H, Urine Urobilinogen 1.0, Urine Leukocyte Esterase NEGATIVE, Urine RBC (Auto) NEGATIVE, Urine RBC NONE, Urine WBC RARE, Urine Squamous Epithelial Cells NONE, Urine Crystals NONE, Urine Bacteria NEGATIVE, Urine Casts PRESENT, Urine Hyaline Casts 2-5H, Urine Mucus LARGEH, Urine Culture Indicated NO, Sodium Level 134L, Potassium Level 4.1, Chloride Level 95L, Carbon Dioxide Level 22, Anion Gap 17H, Blood Urea Nitrogen 20H, Creatinine 1.13, Kathy mat Glomerular Filtration Rate > 60, BUN/Creatinine Ratio 18, Glucose Level 141H , Calcium Level 7.9L, Corrected Calcium 8.6, Magnesium Level 1.5L, Total Bilirubin 3.3H, Aspartate Amino Transf (AST/SGOT) 433H, Alanine Aminotransferase (ALT/SGPT) 324H, Alkaline Phosphatase 100, C-Reactive Protein High Sensitivity 0.06, Total Protein 5.6L, Albumin 3.1L, Lipase 38, Serum Alcohol < 10 Assessment/Plan Assessment/Plan Assessment/Plan Melena and Coffee ground emesis -Patient stable, HGB 12.9, has not had a recent episode of vomiting -EGD/Colonoscopy tomorrow to identify possible bleed and repair -Antiacid and anti-nausea medication -NPO tonight for procedure tomorrow -CBCs to follow HGB -Alcohol Dependence -Pt has noticable tremor, states 10-20 beers usual for him -Given ativan in ED, stated it helped, Continue to give as needed to avoid DT -pt receiving thiamine -Offer counseling at discharge or help pt get to AA meeting -Anemia -Pt admitted with HGB of 12.9 -Continue to check w/ CBC -Pt does not appear to be losing large amounts of blood at this time -IV fluids if BP gets too low LIZ MÉNDEZ DO 12/26/201928: History of Present Illness History of Present Illness Time Seen by Provider: 17:23 History of Present Illness Surgery asked to consult regarding coffee ground emesis. When I spoke to pt he states this happened to him about 8 yrs ago, but what sca red him this time was the "black poop". He had EGD 8 yrs ago; but stated "they told me everything resolved by the time they looked." Allergies and Home Medications Allergies Coded Allergies: No Known Drug Allergies (Unverified , 12/15/19) Home Medications Buspirone HCl 5 Mg Tablet, 5 MG PO BID, (Reported) Lisinopril 40 Mg Tablet, 40 MG PO DAILY, (Reported) Metoprolol Succinate 50 Mg Tab.er.24h, 50 MG PO DAILY, (Reported) Multivitamin 1 Each Tablet, 1 EACH PO DAILY, (Reported) Pantoprazole Sodium 20 Mg Tablet.dr, 20 MG PO DAILY, (Reported) Trazodone HCl 100 Mg Tablet, 100 MG PO HS, (Reported) [Florajen Pre] , 1 EA PO DAILY, (Reported) [Rhin Allergy ] , 1 EACH PO UD PRN for ALLERGY SYMPTOMS, (Reported) Patient Home Medication List Home Medication List Reviewed: Yes Past Cxlekmo-Slbxhn-Sbvsow Hx Patient Social History Alcohol Use?: Yes (States 10-20 is his norm) Surgeries History of Surgeries: Yes Surgeries: Abdominal (EGD, Colonoscopy x1), Gallbladder, Orthopedic (Jaw ) Respiratory History of Respiratory Disorde: No Cardiovascular History of Cardiac Disorders: Yes Cardiac Disorders: Hypertension Neurological History of Neurological Disord: No Genitourinary History of Genitourinary Disor: No Gastrointestinal History of Gastrointestinal Di: Yes Gastrointestinal Disorders: Gastroesophageal Reflux, Gastrointestinal Bleed Musculoskeletal History of Musculoskeletal Dis: No Endocrine History of Endocrine Disorders: No HEENT History of HEENT Disorders: No Loss of Vision: Denies Hearing Impairment: Denies Cancer History of Cancer: No Psychosocial History of Psychiatric Problem: Yes Behavioral Health Disorders: Depression Integumentary History of Skin or Integumenta: No Family Medical History Significant Family History: Cancer (Skin-Father), Diabetes (Father), Hypertension (Father) Review of Systems-General Constitutional: No chills, No fever EENTM: No vision loss, No mouth swelling, No epistaxis, No throat swelling Respiratory: No cough, No hemoptysis, No phlegm, No short of breath Cardiovascular: No chest pain, No edema, No palpitations Gastrointestinal: abdominal pain (RLQ), constipation, hematemesis (Coffe ground), melena, nausea, vomiting (Last Episode this morning) Genitourinary: No dysuria, No hematuria; hesitancy ("Hard to start stream, has to go every 10 mins") Psychiatric/Neurological: Depressed, Tremors (Hands) Other pt denies any hx of abnormal bleeding or bruising Physical Exam-General Problems Physical Exam General Appearance: no apparent distress, thin Eyes: Bilateral Eye PERRL, Bilateral Eye EOMI HEENT: pharynx normal; No scleral icterus (R), No scleral icterus (L), No pale conjunctivae (R), No pale conjunctivae (L) Neck: non-tender, full range of motion, supple Respiratory: chest non-tender, lungs clear, normal breath sounds, no respiratory distress, no accessory muscle use Cardiovascular: regular rate, rhythm, no edema, no murmur Gastrointestinal: normal bowel sounds, non tender, soft; No guarding, No rebound Rectal: deferred Back: no CVA tenderness, no vertebral tenderness Extremities: non-tender, no pedal edema, no calf tenderness Neurologic/Psychiatric: triage registered nurse II-XII nml as tested, no motor/sensory deficits, alert, normal mood/affect, oriented x 3, other (tremors) Skin: normal color, warm/dry Lymphatic: no adenopathy (neck, axilla or groin) Assessment/Plan Assessment/Plan Assessment/Plan Melena and Coffee ground emesis -Patient stable, HGB 12.9, has not had a recent episode of vomiting -EGD tomorrow to identify bleed and possible repair, most likely colonoscopy as outpt -PPI and anti-nausea medication -NPO after midnight for procedure tomorrow -CBCs to follow Hg -Alcohol Dependence -Pt has noticable tremor, states 10-20 beers usual for him -Given ativan in ED, stated it helped, Continue to give as needed to avoid DT -pt receiving thiamine -Offer counseling at discharge or help pt get to AA meeting -Elevated LFT's -?? liver failure secondary to EtOH abuse, will monitor labs. Wonder if this indicates Cirrhosis?? -Hyponatremia - very mild, should correct with IV fluids Supervisory-Addendum Brief Verification & Attestation Participated in pt care: history, MDM, physical Personally performed: exam, history, MDM Care discussed with: Medical Student Procedures: n/a Verification and Attestation of Medical Student E/M Service A medical student performed and documented this service. I then reviewed and verified all information documented by the medical student and made modifications to such information, when appropriate. I personally performed a physical exam, medical decision making and then discussed any differences between the notes and made revisions as necessary to create one note. Liz Méndez , 12/26/20 , 19:36 JEMMA REDMOND MED STUDENT Dec 26, 2020 16:38 LIZ MÉNDEZ DO Dec 26, 2020 19:29
[2020-12-26] MEDS: D5 1/2 NS 1000 ML IV SOLUTION 1,000 ML IV SCH (17:24)
[2020-12-26 19:02] VITALS: BP 103/69
[2020-12-26] MEDS: PANTOPRAZOLE 40 MG (PROTONIX) VIAL IV SCH (20:15)
[2020-12-26] MEDS: FAMOTIDINE 20MG/2ML IV (PEPCID) IVP SCH (20:15)
[2020-12-26] MEDS ORDERED: fentaNYL INJ 100 MCG/2 ML AMP IVP PRN (20:45)
[2020-12-26] MEDS ORDERED: traZODone 100 MG (DESYREL) TAB PO SCH (21:45)
[2020-12-27] VITALS (8 sets, daily range): BP systolic 94–128; BP diastolic 54–88
[2020-12-27] MEDS: D5 1/2 NS 1000 ML IV SOLUTION 1,000 ML IV SCH ×2 (01:20→05:57)
[2020-12-27 05:13] LABS: BASOPHILS % (AUTO) 1 % (0-10); EOSINOPHILS % (AUTO) 1 % (0-10); HEMATOCRIT 33 % (40-54); HEMOGLOBIN 11.4 g/dL (13.3-17.7); LYMPHOCYTES # (AUTO) 1.5 10^3/uL (1.0-4.0); LYMPHOCYTES % (AUTO) 40 % (12-44); MEAN CORPUSCULAR HEMOGLOBIN 34 pg (25-34); MEAN CORPUSCULAR HGB CONC 34 g/dL (32-36); MEAN CORPUSCULAR VOLUME 99 fL (80-99); MEAN PLATELET VOLUME 9.4 fL (9.0-12.2); MONOCYTES # (AUTO) 0.4 10^3/uL (0.0-1.0); MONOCYTES % (AUTO) 10 % (0-12); NEUTROPHILS # (AUTO) 1.9 10^3/uL (1.8-7.8); NEUTROPHILS % (AUTO) 49 % (42-75); PLATELET COUNT 123 10^3/uL (130-400); WHITE BLOOD COUNT 3.8 10^3/uL (4.3-11.0)
[2020-12-27 05:22] LABS: ALBUMIN 2.7 GM/DL (3.2-4.5); CHLORIDE 102 MMOL/L (98-107); POTASSIUM 3.6 MMOL/L (3.6-5.0); SODIUM 135 MMOL/L (135-145)
[2020-12-27 05:23] LABS: CALCIUM 7.7 MG/DL (8.5-10.1)
[2020-12-27 05:24] LABS: GLUCOSE 102 MG/DL (70-105); TOTAL PROTEIN 4.7 GM/DL (6.4-8.2)
[2020-12-27 05:25] LABS: CARBON DIOXIDE 26 MMOL/L (21-32)
[2020-12-27 05:26] LABS: BILIRUBIN,TOTAL 4.5 MG/DL (0.1-1.0)
[2020-12-27 05:27] LABS: ALKALINE PHOSPHATASE 78 U/L (40-136)
[2020-12-27 05:28] LABS: CREATININE SERUM 0.87 MG/DL (0.60-1.30); GFR ESTIMATED > 60
[2020-12-27 05:29] LABS: BUN/CREATININE RATIO 14
[2020-12-27 05:31] LABS: ALANINE AMINOTRANSFERASE 244 U/L (0-55)
--- NOTE | 2020-12-27 05:59 | Short Stay Summary-Hospitalist ---
History of Present Illness HPI/Chief Complaint CC: Hematemesis with ETOH withdrawal HPI: This is a 35yoWM clinic patient of [facility] who is a known alcoholic who presented to the ER with etoh withdrawal and hematemesis. Patient remained stable all night and underwent EGD without evidence of source of bleeding except for gastritis so no new meds will be initiated. Source: patient Exam Limitations: no limitations Date Seen 12/27/20 Time Seen by a Provider: 13:30 Attending Physician So Catherine DO [facility] Referring Physician Date of Admission Dec 26, 2020 at 12:37 Home Medications & Allergies Home Medications Reviewed patient Home Medication Reconciliation performed by pharmacy medication reconciliations pharmaceutical development technician and/or nursing. Patients Allergies have been reviewed. Allergies Allergies Coded Allergies No Known Drug Allergies (Unverified12/15/19) Past Trnpoak-Lsjcdu-Pzrztp Hx Past Med/Social Hx: Reviewed Nursing Past Med/Soc Hx, Reviewed and Corrections made Patient Social History Marrital Status: single Alcohol Use: Regular Use Alcohol Beverage of Choice: Beer Recreational Drug Use: No Smoking Status: Current Everyday Smoker Type Used: Cigarettes, Electronic/Vapor Recent Foreign Travel: No Contact w/other who traveled: No Recent Hopitalizations: No Recent Infectious Disease Expo: No Seasonal Allergies Seasonal Allergies: Yes Past Medical History Surgeries: Abdominal (EGD, Colonoscopy x1), Gallbladder, Orthopedic (Jaw ) Cardiac: Hypertension Genitourinary: Bladder Infection Gastrointestinal: Gastroesophageal Reflux, Gastrointestinal Bleed Musculoskeletal: Scoliosis Loss of Vision: Denies Hearing Impairment: Denies Psychosocial: Depression Family History Cancer (Skin-Father), Diabetes (Father), Hypertension (Father) Review of Systems Constitutional: see HPI Gastrointestinal: hematemesis Physical Exam Physical Exam Vital Signs Vital Signs - First Documented 12/26/20 12/27/20 11:15 12:00 Temp 36.1 Pulse 86 Resp 18 B/P (MAP) 110/75 (87) Pulse Ox 100 O2 Delivery Room Air O2 Flow Rate 8 Capillary Refill : Less Than 3 Seconds Height, Weight, BMI Height: '" Weight: lbs. oz. kg; 25.64 BMI Method: General Appearance: No Apparent Distress, WD/WN Eyes: Bilateral Eye PERRL, Bilateral Eye EOMI HEENT: PERRL/EOMI, TMs Normal, Normal ENT Inspection, Pharynx Normal Neck: Full Range of Motion, Normal Inspection, Non Tender, Supple, Carotid Bruit Respiratory: Chest Non Tender, Lungs Clear, Normal Breath Sounds, No Accessory Muscle Use, No Respiratory Distress Cardiovascular: Regular Rate, Rhythm, No Edema, No Gallop, No JVD, No Murmur, Normal Peripheral Pulses Gastrointestinal: Normal Bowel Sounds, No Organomegaly, No Pulsatile Mass, Non Tender, Soft Back: Normal Inspection, No CVA Tenderness, No Vertebral Tenderness Extremity: Normal Capillary Refill, Normal Inspection, Normal Range of Motion, Non Tender, No Calf Tenderness, No Pedal Edema Neurologic/Psychiatric: Alert, Oriented x3, No Motor/Sensory Deficits, Normal Mood/Affect Skin: Normal Color, Warm/Dry Lymphatic: No Adenopathy Results Results/Procedures Labs Laboratory Tests 12/26/20 11:30 12/27/20 05:10 Patient resulted labs reviewed. Short Stay Diagnosis Discharge Diagnosis-Short Stay Admission Diagnosis Alcohol withdrawal Hematemesis Final Discharge Diagnosis Alcohol withdrawal Hematemesis Conclusion Plan DC home Stop etoh C -scope outpatient Diagnosis/Problems Diagnosis/Problems (1) Alcohol withdrawal Status: Acute Qualifiers: Qualified Codes: F10.239 - Alcohol dependence with withdrawal, unspecified (2) Coffee ground emesis Status: Acute SO CATHERINE DO Dec 27, 2020 05:59
[2020-12-27] MEDS: FAMOTIDINE 20MG/2ML IV (PEPCID) IVP SCH (08:12)
[2020-12-27] MEDS: PANTOPRAZOLE 40 MG (PROTONIX) VIAL IV SCH (08:12)
[2020-12-27] MEDS ORDERED: THIAMINE INJECTION 100 MG, FOLIC ACID INJECTION 1 MG, MAGNESIUM SULFATE 2 GM, VITAMIN M... IV SCH ×5 (09:00)
[2020-12-27] MEDS ORDERED: LACTATED RINGERS 1,000 ML IV ONE ×2 (11:13→12:15)
[2020-12-27] MEDS ORDERED: proPOfol 200 MG/20 ML (DIPRIVAN) VIAL IV ONE (11:37)
[2020-12-27] MEDS ORDERED: MIDAZOLAM 2 MG/2 ML (VERSED) VIAL ONE (11:37)
--- NOTE | 2020-12-27 12:10 | Progress Note-Post Operative ---
Post-Operative Progess Note Surgeon (s)/Supervisor Nuclear Medicine (s) Surgeon LIZ JONES DO Supervisor Nuclear Medicine: none Pre-Operative Diagnosis Coffee Ground Emesis, Gastritis, Dysphagia Post-Operative Diagnosis Gastritis Hiatal hernia Procedure & Operative Findings Date of Procedure 12/27/20 Procedure Performed/Findings EGD with bx Anesthesia Type IV sedation by INJECTION MOLDER Estimated Blood Loss Estimated blood loss (mL): scant Specimens/Packing Specimens Removed antral bx Body of stomach bx GE jxn bx LIZ JONES DO Dec 27, 2020 12:10
--- NOTE | 2020-12-27 12:11 | Endoscopy Discharge Instruct ---
Endo Procedure/Findings Findings 1.: Gastritis 2.: Hiatal Hernia Discharge Instructions - Activity: You might feel a little sleepy until tomorrow. This is due to the medicine you received to relax you. Until tomorrow, you should: NOT drive a car, operate machinery or power tools. NOT drink any alcoholic beverages. NOT make any important decisions or sign importortant papers. Do not return to work until tomorrow, unless otherwise instructed. Resume previous activities tomorrow. Diet: Start by taking liquids. If you tolerate liquids, advance to solid food. 1.: EGD in 3 years Notify Physician - If you experience excessive bleeding, unusual abdominal pain, fever, or chest pain, contact your doctor immediately. LIZ JONES DO Dec 27, 2020 12:11
--- NOTE | 2020-12-27 13:01 | Anesthesia-General Post-Op ---
MAC Patient Condition Mental Status/LOC: Same as Preop Cardiovascular: Satisfactory Nausea/Vomiting: Absent Respiratory: Satisfactory Pain: Controlled Complications: Absent Post Op Complications Complications None Follow Up Care/Instructions Patient Instructions None needed. Anesthesiology Discharge Order Discharge Order Patient is doing well, no complaints, stable vital signs, no apparent adverse anesthesia problems. No complications reported per nursing. HAM VILLEGAS CRNA Dec 27, 2020 13:01
[2020-12-27] MEDS ORDERED: traZODone 100 MG (DESYREL) TAB PO SCH (21:00)
[2020-12-27] MEDS ORDERED: busPIRone 5 MG (BUSPAR) TAB PO SCH (21:00)
--- NOTE | 2020-12-28 00:39 | OPERATIVE REPORT ---
DATE OF SERVICE: PREOPERATIVE DIAGNOSES: Coffee ground emesis and abdominal pain. POSTOPERATIVE DIAGNOSES: Gastritis and large hiatal hernia. PROCEDURE: EGD with biopsy. SURGEON: Nemesio Méndez DO REPEAT CHIEF: None. ANESTHESIA: IV sedation by the EFFICIENCY CLERK. SPECIMEN: Biopsy from the antrum, biopsy of body of stomach, biopsy of the GE junction. BLOOD LOSS: Scant. FLUIDS: Per anesthesia. POSTOPERATIVE CONDITION: Stable. INDICATION FOR PROCEDURE: The patient is a 35-year-old male who came in with some coffee ground emesis. Also started having some melena and complaining of some abdominal pain, needed a workup. FINDINGS: The patient had gastritis and a large hiatal hernia. No other obvious sources for coffee ground emesis found. PROCEDURE NOTE: After informed consent was obtained, the patient was brought to the endoscopy suite, placed in bed in left lateral decubitus position. He was administered IV sedation by the EFFICIENCY CLERK who then monitored his vitals the entire time, heart rate, blood pressure and pulse ox and the scope was inserted, placed down the mouth through the esophagus into the stomach, noted some mild gastritis in the stomach, pushed pass this into the duodenum, first and second portion of the duodenum looked fine. Pulled back and did a biopsy of the antrum, then retroflexed the scope, saw a large hiatal hernia, took a picture of this and then did a biopsy of body of stomach, looked like there is some more gastritis here, pulled the scope into the GE junction, could see the hiatal hernia, took a picture of this and saw some changes at the GE junction, did a biopsy here and then pushed the scope into the stomach, suctioned all the air out and pulled the scope up the esophagus and out the mouth, did not see any ulcers or any reason for coffee ground emesis. The patient tolerated the procedure, recovered in endoscopy suite. Job ID: [id number] DocumentID: [id number] Dictated Date: 12/27/2020 17:16:01 Gas Engine Operator Generators Date: 12/28/2020 00:38:49 Dictated By: NEMESIO MÉNDEZ DO
[2020-12-28] MEDS ORDERED: meTOproloL SUCCINATE 50 MG (TOPROL XL) TAB PO SCH (09:00)
[2020-12-28] MEDS ORDERED: MULTIVIT W/MINERALS TAB (THERAGRAN M) PO SCH (09:00)
[2020-12-28] MEDS ORDERED: lisINopril 40 MG (PRINIVIL) TABLET PO SCH (09:00)
[2020-12-28] MEDS ORDERED: PANTOPRAZOLE 20 MG TABLET (PROTONIX) PO SCH (09:00)
== END 2020-12-27 15:45 | disposition home health service (06) ==
LOC: EDUNIT# 11:13 → ER 11:15 → 4TH 12:37 → UNDOADMOB 12:37 → 4TH 13:56 → SDC 13:56 → UNDODISOB 12-27 15:45
PROVIDERS: ATTEND Internal Medicine
DX: K29.70 Gastritis, unspecified, without bleeding (principal); K21.00 Gastro-esophageal reflux disease with esophagitis, without bleeding; K44.9 Diaphragmatic hernia without obstruction or gangrene; I10 Essential (primary) hypertension; M41.9 Scoliosis, unspecified; F10.239 Alcohol dependence with withdrawal, unspecified; F32.9 Major depressive disorder, single episode, unspecified; F17.290 Nicotine dependence, other tobacco product, uncomplicated; Z79.899 Other long term (current) drug therapy; Z83.3 Family history of diabetes mellitus; Z80.8 Family history of malignant neoplasm of other organs or systems
CPT/HCPCS: 43239; 80053 ×2; 81000; 83690; 83735; 85025 ×2; 85610; 86141; 87081; 88305; 96374; 96375; 99284; G0378; G0480; U0002; 36415; 80320; 87635

== ENCOUNTER 2022-12-26 11:43 | Emergency (ER) | payer MEDICARE, MEDICAID ==
[~2022-12-26] VITALS: Ht 157 cm; Wt 68.9 kg
[~2022-12-26 11:43] MED LIST changes: +BUSP5TAB59 PO; +LISI40TA9 PO; +METO50TA7 PO; +MULT-1136 PO; +PANT20TA18 PO; +TRAZ-227 PO; +[UNRECOGNIZED DRUG - OTHER] PO; +[UNRECOGNIZED DRUG - REMARK] PO
--- NOTE | 2022-12-26 12:08 | ED Cardiac General ---
History of Present Illness General Chief Complaint: Cardiac/General Problems Stated Complaint: PALPITATIONS Nursing Triage Note: PT PRESENTS TO ED VIA EMS FROM HOME WITH COMPLAINTS OF DOING HEROINE- OR WHAT HE THINKS WAS HEROINE. STATES HE FOUND A BAGGY ON THE GROUND DOWN THE ROAD FROM HIS HOUSE AND DECIDED TO TRY IT. PT STATES HE HAS BEEN UNABLE TO SLEEP FOR 4 DAYS. PT REPORTS AFTER SMOKING THE SUBSTANCE HE FELT HIS HEART STOPPPED 4 TIMES AND HAD TO GIVE HIMSELF COMPRESSIONS TO GET IT STARTED AGAIN. Source: patient, EMS Exam Limitations: no limitations History of Present Illness Date Seen by Provider: Dec 26, 2022 Time Seen by Provider: 11:58 Initial Comments Patient is a 37-year-old male who presents to the emergency room with a chief complaint of feeling tired/fatigued after smoking "a bag of heroin". Patient is very somnolent on arrival requires repeated verbal stimulation to stay awake and answer questions. Knows who he is and where he is. States that he saw a random bag of some material on the ground and decided to "smoke it". He states that shortly after smoking what ever was in the baggy his heart "stopped" and he had to give himself chest compressions on 4 separate occasions in order to get his heart started. Currently he has no complaints and feels back to normal. Does admit to history of substance abuse. States that he has never done heroin before. Vital signs are stable. No complaints of recent illness. No palpitations currently. Is not short of breath. States he has not slept in "4 days". Timing/Duration: 1-3 hours Severity: moderate NTG SL LENS EDGE GRINDER MACHINE: No ASA po LENS EDGE GRINDER MACHINE: No Associated Systoms: Malaise, Other (Palpitations) Allergies and Home Medications Allergies Coded Allergies: No Known Drug Allergies (Unverified , 12/15/19) Patient Home Medication List Home Medication List Reviewed: Yes Buspirone HCl (Buspirone HCl) 5 Mg Tablet, 5 MG PO BID, (Reported) Entered as Reported by: FILIBERTO HARRIS on 12/26/20 145 Lisinopril (Lisinopril) 40 Mg Tablet, 40 MG PO DAILY, (Reported) Entered as Reported by: FILIBERTO HARRIS on 12/26/20 1453 Metoprolol Succinate (Metoprolol Succinate) 50 Mg Tab.er.24h, 50 MG PO DAILY, (Reported) Entered as Reported by: FILIBERTO HARRIS on 12/26/201458 Multivitamin (Multivitamin) 1 Each Tablet, 1 EACH PO DAILY, (Reported) Entered as Reported by: FILIBERTO HARRIS on 12/26/201458 Pantoprazole Sodium (Pantoprazole Sodium) 20 Mg Tablet.dr, 20 MG PO DAILY, (Reported) Entered as Reported by: FILIBERTO HARRIS on 12/26/201458 Trazodone HCl (Trazodone HCl) 100 Mg Tablet, 100 MG PO HS, (Reported) Entered as Reported by: FILIBERTO HARRIS on 12/26/201458 [Florajen Pre] , 1 EA PO DAILY, (Reported) Entered as Reported by: FILIBERTO HARRIS on 12/26/201458 [Rhin Allergy ] , 1 EACH PO UD PRN for ALLERGY SYMPTOMS, (Reported) Entered as Reported by: FILIBERTO HARRIS on 12/26/201458 Review of Systems Review of Systems Constitutional: see HPI EENTM: No Symptoms Reported Respiratory: No Symptoms Reported Cardiovascular: Chest Pain, Palpitations Gastrointestinal: No Symptoms Reported Musculoskeletal: no symptoms reported Skin: no symptoms reported Psychiatric/Neurological: Other (Very sleepy) Past [place]-Vlezsm-Adawzv Hx Patient Social History Tobacco Use?: Yes Tobacco type used: Cigarettes Smoking Status: Current Everyday Smoker Substance use?: Yes Substance type: Methamphetamine, Opiates/Opioids, Marijuana Substance frequency: Several times a month Alcohol Use?: Yes Alcohol Frequency: Couple times a week Pt feels they are or have been: No Seasonal Allergies Seasonal Allergies: Yes Past Medical History Surgery/Hospitalization HX: PMH: HTN, SLEEP. ANXIETY Surgeries: Yes Abdominal, Gallbladder, Orthopedic Respiratory: No Cardiac: Yes Hypertension Neurological: No Genitourinary: No Bladder Infection Gastrointestinal: Yes Gastroesophageal Reflux, Gastrointestinal Bleed Musculoskeletal: No Scoliosis Endocrine: No HEENT: No Loss of Vision: Denies Hearing Impairment: Denies Cancer: No Psychosocial: Yes Depression Integumentary: No Family Medical History Cancer, Diabetes, Hypertension Physical Exam Vital Signs Vital Signs - First Documented 12/26/22 11:48 Temp 36.1 Pulse 84 Resp 16 B/P (MAP) 118/82 (94) Pulse Ox 95 Capillary Refill : Less Than 3 Seconds Height, Weight, BMI Height: '" Weight: lbs. oz. kg; 27.00 BMI Method: General Appearance: No Apparent Distress, WD/WN, Thin HEENT: PERRL/EOMI Neck: Normal Inspection Respiratory: Lungs Clear, Normal Breath Sounds, No Accessory Muscle Use, No Respiratory Distress Cardiovascular: Regular Rate, Rhythm, Normal Peripheral Pulses Gastrointestinal: Non Tender, Soft Extremity: Normal Inspection Neurologic/Psychiatric: Alert (Arousable to voice), Oriented x3, No Motor/Sensory Deficits, Normal Mood/Affect Skin: Normal Color, Warm/Dry Progress/Results/Core Measures Results/Orders Lab Results Laboratory Tests Test 12/26/22 11:49 12/26/22 13:28 Range/Units White Blood Count 4.6 4.3-11.0 10^3/uL Red Blood Count 3.80 L 4.30-5.52 10^6/uL Hemoglobin 13.2 L 13.3-17.7 g/dL Hematocrit 38 L 40-54 % Mean Corpuscular Volume 101 H 80-99 fL Mean Corpuscular Hemoglobin 35 H 25-34 pg Mean Corpuscular Hemoglobin Concent 35 32-36 g/dL Red Cell Distribution Width 11.8 10.0-14.5 % Platelet Count 230 130-400 10^3/uL Mean Platelet Volume 9.1 9.0-12.2 fL Immature Granulocyte % (Auto) 0 % Neutrophils (%) (Auto) 70 42-75 % Lymphocytes (%) (Auto) 17 12-44 % Monocytes (%) (Auto) 13 H 0-12 % Eosinophils (%) (Auto) 0 0-10 % Basophils (%) (Auto) 1 0-10 % Neutrophils # (Auto) 3.2 1.8-7.8 10^3/uL Lymphocytes # (Auto) 0.8 L 1.0-4.0 10^3/uL Monocytes # (Auto) 0.6 0.0-1.0 10^3/uL Eosinophils # (Auto) 0.0 0.0-0.3 10^3/uL Basophils # (Auto) 0.0 0.0-0.1 10^3/uL Immature Granulocyte # (Auto) 0.0 0.0-0.1 10^3/uL Percent Immature Platelet Fraction 1.9 0.0-7.6 % Sodium Level 136 135-145 MMOL/L Potassium Level 3.5 L 3.6-5.0 MMOL/L Chloride Level 102 98-107 MMOL/L Carbon Dioxide Level 21 21-32 MMOL/L Anion Gap 13 5-14 MMOL/L Blood Urea Nitrogen 7 7-18 MG/DL Creatinine 0.81 0.60-1.30 MG/DL Estimat Glomerular Filtration Rate 116 BUN/Creatinine Ratio 9 Glucose Level 112 H 70-105 MG/DL Calcium Level 9.0 8.5-10.1 MG/DL Urine Opiates Screen NEGATIVE NEGATIVE Urine Oxycodone Screen NEGATIVE NEGATIVE Urine Methadone Screen NEGATIVE NEGATIVE Urine Propoxyphene Screen NEGATIVE NEGATIVE Urine Barbiturates Screen NEGATIVE NEGATIVE Ur Tricyclic Antidepressants Screen NEGATIVE NEGATIVE Urine Phencyclidine Screen NEGATIVE NEGATIVE Urine Amphetamines Screen NEGATIVE NEGATIVE Urine Methamphetamines Screen NEGATIVE NEGATIVE Urine Benzodiazepines Screen POSITIVE H NEGATIVE Urine Cocaine Screen NEGATIVE NEGATIVE Urine Cannabinoids Screen NEGATIVE NEGATIVE My Orders Orders - EDUARDO TORIBIO MD Ekg Tracing (12/26/22 11:48) Ed Iv/Invasive Line Start (12/26/22 12:02) Cbc With Automated Diff (12/26/22 12:02) Basic Metabolic Panel (12/26/22 12:02) Chest 1 View, Ap/Pa Only (12/26/22 12:02) Drug Screen Stat (Urine) (12/26/22 12:02) Vital Signs/I&O 12/26/22 12/26/22 11:48 14:38 Temp 36.1 Pulse 84 120 Resp 16 20 B/P (MAP) 118/82 (94) 130/101 Pulse Ox 95 98 Blood Pressure Mean: 94 Progress Progress Note : Time: 12:30 Progress Note Patient seen and evaluated by me. Evaluation today includes physical exam, CBC, chemistry, urine drug screen, chest x-ray and EKG. Physical exam pertinent for well-developed well-nourished male no acute distress, somewhat somnolent but arousable to voice. No focal neurologic deficits. Alert and oriented. Heart is regular, lungs are clear no respiratory distress. Abdomen is soft. No obvious outward signs of trauma. Vital signs are stable. No focal neurologic deficits. Differential diagnosis includes substance use disorder/intoxication. Labs reviewed, CBC and chemistry are normal. Urine drug screen is positive for benzodiazepines. EKG and chest x-ray are unremarkable. Patient is monitored in the emergency department. His vital signs remained stable. He does endorse a history of substance abuse/misuse. He did not require any medications during his time in the emergency department. No concerning findings for acute coronary syndrome. Patient remains asymptomatic, back to normal. Will be discharged to home with strict instructions not to use illicit drugs and to follow-up with his primary care physician Initial ECG Impression Date: Dec 26, 2022 Initial ECG Impression Time: 11:55 Initial ECG Rate: 87 Initial ECG Rhythm: Normal Sinus Initial ECG Intervals: Normal Initial ECG Impression: Normal Diagnostic Imaging Diagonstic Imaging: Xray Plain Films/CT/US/NM/MRI: chest Comments [facility] [place] NAME: OLYA LUNA [facility] REC#: [id number] PT STATUS: REG ER : 1985 PHYSICIAN: EDUARDO TORIBIO MD ADMIT DATE: 12/26/22/ER Draft Date of Exam:12/26/22 CHEST 1 VIEW, AP/PA ONLY INDICATION: Chest pain COMPARISON: None available. TECHNIQUE: Serial chest dated 12/21/2022 FINDINGS: The cardiac silhouette is within normal limits in size. No significant pulmonary vascular congestion. The lungs are clear. No pleural effusion. No pneumothorax. No acute osseous abnormality. IMPRESSION: No acute cardiopulmonary abnormality. Dictated on workstation # [id number] Dict: 12/26/22 1223 Trans: 12/26/[address] [facility] [id number] Interpreted by: BEKAH CONNER MD Electronically signed by: Departure Impression Primary Impression: Fatigue Qualified Codes: R53.83 - Other fatigue Additional Impression: Substance abuse Disposition: 01 HOME, SELF-CARE Condition: Stable Departure-Patient Inst. Decision time for Depature: 14:15 Referrals: [facility] (PCP/Family) Primary Care Physician Patient Instructions: Substance Use Disorder ED Add. Discharge Instructions: You should not smoke random things you find on the road. continue your daily medications as prescribed. Follow up with your primary care at [facility] next week. Return to the Emergency Department for any new, emergent or concerning complaints. Copy Copies To 1: CURRY FUNG KATHRYN M MD Dec 26, 2022 12:08
[2022-12-26 12:14] LABS: MEAN CORPUSCULAR HEMOGLOBIN 35 pg (25-34); MEAN CORPUSCULAR HGB CONC 35 g/dL (32-36)
[2022-12-26 12:16] LABS: BASOPHILS % (AUTO) 1 % (0-10); EOSINOPHILS % (AUTO) 0 % (0-10); HEMATOCRIT 38 % (40-54); HEMOGLOBIN 13.2 g/dL (13.3-17.7); LYMPHOCYTES # (AUTO) 0.8 10^3/uL (1.0-4.0); LYMPHOCYTES % (AUTO) 17 % (12-44); MEAN CORPUSCULAR VOLUME 101 fL (80-99); MEAN PLATELET VOLUME 9.1 fL (9.0-12.2); MONOCYTES # (AUTO) 0.6 10^3/uL (0.0-1.0); MONOCYTES % (AUTO) 13 % (0-12); NEUTROPHILS # (AUTO) 3.2 10^3/uL (1.8-7.8); NEUTROPHILS % (AUTO) 70 % (42-75); PLATELET COUNT 230 10^3/uL (130-400); WHITE BLOOD COUNT 4.6 10^3/uL (4.3-11.0)
[2022-12-26 12:20] LABS: POTASSIUM 3.5 MMOL/L (3.6-5.0)
[2022-12-26 12:25] LABS: CREATININE SERUM 0.81 MG/DL (0.60-1.30)
--- NOTE | 2022-12-26 12:43 | Diagnostic Imaging Report ---
INDICATION: Chest pain COMPARISON: None available. TECHNIQUE: Serial chest dated 12/21/2022 FINDINGS: The cardiac silhouette is within normal limits in size. No significant pulmonary vascular congestion. The lungs are clear. No pleural effusion. No pneumothorax. No acute osseous abnormality. IMPRESSION: No acute cardiopulmonary abnormality. Dictated by: Dictated on workstation # [id number]
[2022-12-26 13:56] LABS: AMPHETAMINE SCREEN, URINE NEGATIVE (NEGATIVE); BARBITURATE SCREEN URINE NEGATIVE (NEGATIVE); BENZODIAZEPINES SCREEN URINE POSITIVE (NEGATIVE); CANNABINOID SCREEN, URINE NEGATIVE (NEGATIVE); COCAINE SCREEN URINE NEGATIVE (NEGATIVE); METHADONE STAT NEGATIVE (NEGATIVE); OPIATE SCREEN URINE NEGATIVE (NEGATIVE); OXYCODONE STAT NEGATIVE (NEGATIVE); PROPOXYPHENE STAT NEGATIVE (NEGATIVE); TRICYCLIC ANTIDEPRESSANTS SCRE NEGATIVE (NEGATIVE)
[2022-12-26 14:38] VITALS: BP 130/101
== END 2022-12-26 14:37 | disposition home or self-care (01) ==
LOC: EDUNIT# 11:43 → ER 11:44
DX: R53.83 Other fatigue (principal); F11.10 Opioid abuse, uncomplicated; F17.210 Nicotine dependence, cigarettes, uncomplicated
CPT/HCPCS: 36415; 71045; 80048; 80306; 85025; 93005

== ENCOUNTER 2023-06-23 11:03 | Emergency (ER) | payer MEDICARE, MEDICAID ==
[~2023-06-23] VITALS: Ht 172.7 cm; Wt 74.8 kg
[2023-06-23] MEDS ORDERED: LACTATED RINGERS 1,000 ML 1,000 ML IV ONE (11:15)
[2023-06-23 11:27] LABS: BASOPHILS % (AUTO) 1 % (0-10); EOSINOPHILS % (AUTO) 0 % (0-10); HEMATOCRIT 40 % (40-54); HEMOGLOBIN 13.7 g/dL (13.3-17.7); LYMPHOCYTES # (AUTO) 1.5 10^3/uL (1.0-4.0); LYMPHOCYTES % (AUTO) 29 % (12-44); MEAN CORPUSCULAR HEMOGLOBIN 35 pg (25-34); MEAN CORPUSCULAR HGB CONC 35 g/dL (32-36); MEAN CORPUSCULAR VOLUME 100 fL (80-99); MEAN PLATELET VOLUME 8.4 fL (9.0-12.2); MONOCYTES # (AUTO) 0.6 10^3/uL (0.0-1.0); MONOCYTES % (AUTO) 10 % (0-12); NEUTROPHILS # (AUTO) 3.2 10^3/uL (1.8-7.8); NEUTROPHILS % (AUTO) 59 % (42-75); PLATELET COUNT 237 10^3/uL (130-400); WHITE BLOOD COUNT 5.4 10^3/uL (4.3-11.0)
[2023-06-23 11:48] LABS: ALBUMIN 4.3 GM/DL (3.2-4.5); CHLORIDE 106 MMOL/L (98-107); POTASSIUM 3.4 MMOL/L (3.6-5.0); SODIUM 141 MMOL/L (135-145)
[2023-06-23 11:49] LABS: CALCIUM 8.8 MG/DL (8.5-10.1)
[2023-06-23 11:50] LABS: GLUCOSE 104 MG/DL (70-105); TOTAL PROTEIN 6.8 GM/DL (6.4-8.2)
[2023-06-23 11:51] LABS: CARBON DIOXIDE 23 MMOL/L (21-32)
[2023-06-23 11:52] LABS: BILIRUBIN,TOTAL 0.3 MG/DL (0.1-1.0)
--- NOTE | 2023-06-23 11:52 | ED General ---
General Chief Complaint: Abdominal/GI Problems Stated Complaint: ALCOHOL Nursing Triage Note: PT ARRIVED BY [facility] WITH CC OF RIGHT KIDNEY PAIN. PT STATES THAT HIS "LEFT LIVER HURTS MORE THAN HIS RIGHT". PT DRANK WHISKEY TODAY AND "SMOKED A BOWL WITH HIS MOM". Source of Information: Patient, EMS Exam Limitations: Intoxication History of Present Illness Date Seen by Provider: Jun 23, 2023 Time Seen by Provider: 11:04 Initial Comments This 38-year-old man presents to the emergency room via [facility] with complaints of right flank pain and his "left liver hurting more than right liver." He is clearly intoxicated and admits to drinking whiskey. During interview he reports pain just superior to the left iliac crest. He denies any injury. This area is tender to touch. No treatments have been administered by EMS or the patient. Per EMS report, patient also "smoked a bowl with his mother" prior to their arrival at his home. Patient does not leave his house very often and does not generally seek health care because he reports suffering from agoraphobia. Allergies and Home Medications Allergies Coded Allergies: No Known Drug Allergies (Unverified , 12/15/19) Patient Home Medication List Home Medication List Reviewed: Yes Buspirone HCl (Buspirone HCl) 5 Mg Tablet, 5 MG PO BID, (Reported) Entered as Reported by: FILIBERTO HARRIS on 12/26/201458 Lisinopril (Lisinopril) 40 Mg Tablet, 40 MG PO DAILY, (Reported) Entered as Reported by: FILIBERTO HARRIS on 12/26/201458 Metoprolol Succinate (Metoprolol Succinate) 50 Mg Tab.er.24h, 50 MG PO DAILY, (Reported) Entered as Reported by: FILIBERTO HARRIS on 12/26/201458 Multivitamin (Multivitamin) 1 Each Tablet, 1 EACH PO DAILY, (Reported) Entered as Reported by: FILIBERTO HARRIS on 12/26/201458 Pantoprazole Sodium (Pantoprazole Sodium) 20 Mg Tablet.dr, 20 MG PO DAILY, (Reported) Entered as Reported by: FILIBERTO HARRIS on 12/26/201458 Trazodone HCl (Trazodone HCl) 100 Mg Tablet, 100 MG PO HS, (Reported) Entered as Reported by: FILIBERTO HARRIS on 12/26/201458 [Florajen Pre] , 1 EA PO DAILY, (Reported) Entered as Reported by: FILIBERTO HARRIS on 12/26/201458 [Rhin Allergy ] , 1 EACH PO UD PRN for ALLERGY SYMPTOMS, (Reported) Entered as Reported by: FILIBERTO HARRIS on 12/26/201458 Review of Systems Review of Systems Constitutional: see HPI EENTM: no symptoms reported Respiratory: no symptoms reported Cardiovascular: no symptoms reported Gastrointestinal: no symptoms reported Genitourinary: no symptoms reported Musculoskeletal: see HPI Skin: no symptoms reported Psychiatric/Neurological: See HPI Hematologic/Lymphatic: No Symptoms Reported Past [id number]-Dfnimu-Aqbrzz Hx Patient Social History Tobacco Use?: No Smoking Status: Former Smoker Substance use?: Yes Substance type: Marijuana Alcohol Use?: Yes Alcohol type: Hard Liquor Alcohol Frequency: Daily Seasonal Allergies Seasonal Allergies: Yes Past Medical History Surgery/Hospitalization HX: PMH: HTN, SLEEP. ANXIETY Surgeries: Yes Abdominal, Gallbladder, Orthopedic Respiratory: No Cardiac: Yes Hypertension Neurological: No Genitourinary: No Bladder Infection Gastrointestinal: Yes Gastroesophageal Reflux, Gastrointestinal Bleed Musculoskeletal: Yes Scoliosis Endocrine: No HEENT: No Loss of Vision: Denies Hearing Impairment: Denies Cancer: No Psychosocial: Yes ("Agoraphobia", daily alcohol use) Depression Integumentary: No Family Medical History Cancer, Diabetes, Hypertension Physical Exam Vital Signs Vital Signs - First Documented 06/23/23 06/23/23 11:03 11:55 Temp 37.6 Pulse 103 Resp 18 B/P (MAP) 128/96 (107) Pulse Ox 100 O2 Delivery Room Air Capillary Refill : Height, Weight, BMI Height: '" Weight: lbs. oz. kg; 25.00 BMI Method: General Appearance: WD/WN, Mild Distress, Other (Appears intoxicated) HEENT: PERRL/EOMI, Normal ENT Inspection Neck: Normal Inspection, Non Tender Respiratory: Lungs Clear, Normal Breath Sounds, No Accessory Muscle Use Cardiovascular: Regular Rate, Rhythm, No Edema, No Murmur Gastrointestinal: Non Tender, Soft; No Distended Back: Other (Tiny bruise over the left posterior iliac crest. Tenderness superior and inferior to this location. Patient is ambulatory and does not seem to suffer pain with range of motion of the left leg.) Extremity: Normal Inspection, No Pedal Edema Neurologic/Psychiatric: Alert, No Motor/Sensory Deficits, Other (Appears intoxicated) Skin: Normal Color, Warm/Dry, Ecchymosis (Small bruise over the left posterior iliac crest) Progress/Results/Core Measures Suspected Sepsis SIRS Temperature: Pulse: 103 Respiratory Rate: Laboratory Tests 06/23/23 11:19: White Blood Count 5.4 Blood Pressure 128 /96 Mean: 107 Laboratory Tests 06/23/23 11:19: Creatinine 0.98, Platelet Count 237, Total Bilirubin 0.3 Results/Orders Lab Results Laboratory Tests Test 06/23/23 11:19 06/23/23 11:44 Range/Units White Blood Count 5.4 4.3-11.0 10^3/uL Red Blood Count 3.97 L 4.30-5.52 10^6/uL Hemoglobin 13.7 13.3-17.7 g/dL Hematocrit 40 40-54 % Mean Corpuscular Volume 100 H 80-99 fL Mean Corpuscular Hemoglobin 35 H 25-34 pg Mean Corpuscular Hemoglobin Concent 35 32-36 g/dL Red Cell Distribution Width 11.9 10.0-14.5 % Platelet Count 237 130-400 10^3/uL Mean Platelet Volume 8.4 L 9.0-12.2 fL Immature Granulocyte % (Auto) 0 % Neutrophils (%) (Auto) 59 42-75 % Lymphocytes (%) (Auto) 29 12-44 % Monocytes (%) (Auto) 10 0-12 % Eosinophils (%) (Auto) 0 0-10 % Basophils (%) (Auto) 1 0-10 % Neutrophils # (Auto) 3.2 1.8-7.8 10^3/uL Lymphocytes # (Auto) 1.5 1.0-4.0 10^3/uL Monocytes # (Auto) 0.6 0.0-1.0 10^3/uL Eosinophils # (Auto) 0.0 0.0-0.3 10^3/uL Basophils # (Auto) 0.0 0.0-0.1 10^3/uL Immature Granulocyte # (Auto) 0.0 0.0-0.1 10^3/uL Sodium Level 141 135-145 MMOL/L Potassium Level 3.4 L 3.6-5.0 MMOL/L Chloride Level 106 98-107 MMOL/L Carbon Dioxide Level 23 21-32 MMOL/L Anion Gap 12 5-14 MMOL/L Blood Urea Nitrogen 14 7-18 MG/DL Creatinine 0.98 0.60-1.30 MG/DL Estimat Glomerular Filtration Rate 101 BUN/Creatinine Ratio 14 Glucose Level 104 70-105 MG/DL Calcium Level 8.8 8.5-10.1 MG/DL Corrected Calcium 8.6 8.5-10.1 MG/DL Magnesium Level 2.3 1.6-2.4 MG/DL Total Bilirubin 0.3 0.1-1.0 MG/DL Aspartate Amino Transf (AST/SGOT) 22 5-34 U/L Alanine Aminotransferase (ALT/SGPT) 26 0-55 U/L Alkaline Phosphatase 49 40-136 U/L Total Protein 6.8 6.4-8.2 GM/DL Albumin 4.3 3.2-4.5 GM/DL Lipase 50 8-78 U/L Salicylates Level < 5.0 L 5.0-20.0 MG/DL Acetaminophen Level < 10 L 10-30 UG/ML Serum Alcohol 391 *H <10 MG/DL Urine Color YELLOW Urine Clarity CLEAR Urine pH 5.5 5-9 Urine Specific [place] <=1.005 1.016-1.022 Urine Protein NEGATIVE NEGATIVE Urine Glucose (UA) NEGATIVE NEGATIVE Urine Ketones NEGATIVE NEGATIVE Urine Nitrite NEGATIVE NEGATIVE Urine Bilirubin NEGATIVE NEGATIVE Urine Urobilinogen 0.2 < = 1.0 MG/DL Urine Leukocyte Esterase NEGATIVE NEGATIVE Urine RBC (Auto) NEGATIVE NEGATIVE Urine RBC NONE /HPF Urine WBC NONE /HPF Urine Squamous Epithelial Cells NONE /HPF Urine Crystals NONE /LPF Urine Bacteria NEGATIVE /HPF Urine Casts NONE /LPF Urine Mucus NEGATIVE /LPF Urine Culture Indicated NO Urine Opiates Screen NEGATIVE NEGATIVE Urine Oxycodone Screen NEGATIVE NEGATIVE Urine Methadone Screen NEGATIVE NEGATIVE Urine Propoxyphene Screen NEGATIVE NEGATIVE Urine Barbiturates Screen NEGATIVE NEGATIVE Ur Tricyclic Antidepressants Screen NEGATIVE NEGATIVE Urine Phencyclidine Screen NEGATIVE NEGATIVE Urine Amphetamines Screen NEGATIVE NEGATIVE Urine Methamphetamines Screen NEGATIVE NEGATIVE Urine Benzodiazepines Screen NEGATIVE NEGATIVE Urine Cocaine Screen NEGATIVE NEGATIVE Urine Cannabinoids Screen NEGATIVE NEGATIVE My Orders Orders - GEOVANNI LAW MD Acetaminophen (06/23/23 11:06) Alcohol (06/23/23 11:06) Cbc With Automated Diff (06/23/23 11:06) Comprehensive Metabolic Panel (06/23/23 11:06) Drug Screen Stat (Urine) (06/23/23 11:06) Lipase (06/23/23 11:06) Magnesium (06/23/23 11:06) Salicylate (06/23/23 11:06) Ua Culture If Indicated (06/23/23 11:06) Ed Iv/Invasive Line Start (06/23/23 11:06) Lactated Ringers 1,000 Ml (Lactated Ring (06/23/23 11:15) Ct Abdomen/Pelvis W (06/23/23 12:31) Iohexol Injection (Omnipaque 350 Mg/Ml 1 (06/23/23 12:45) Received Contrast (Hold Metformin- Contr (06/23/23 12:45) Ns (Ivpb) 100 Ml (Sodium Chloride 0.9% 1 (06/23/23 12:45) Lorazepam Injection (Lorazepam Injection (06/23/23 12:45) Ketorolac Injection (Ketorolac Injection (06/23/23 13:45) Medications Given in ED Vital Signs/I&O 06/23/23 06/23/23 06/23/23 11:03 11:55 14:24 Temp 37.6 Pulse 103 101 99 Resp 18 18 B/P (MAP) 128/96 (107) 114/75 (88) 128/82 Pulse Ox 100 100 99 O2 Delivery Room Air Capillary Refill : Blood Pressure Mean: 107 Progress Note : Progress Note Patient was interviewed and examined. Report was received from EMS. Labs were obtained, reviewed, and interpreted by me. CBC, CMP, lipase, and urinalysis were all unremarkable. Urine toxicology screen was negative. Serum alcohol level was 391. Patient expressed desire to leave multiple times. However, he did not have a ride available for quite some time. While he was waiting for a ride, he consented to further evaluation with a CT scan. 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 CT of the abdomen and pelvis revealed no acute bony or visceral injuries or surgical pathologies. There was tissue stranding near the area of his pain suggesting contusion. CT was viewed by me and I personally did not appreciate any acute injuries. I also reviewed the radiologist's report below. Patient received Toradol for treatment of his pain. He was eventually discharged when a ride was available. See discharge instructions for further discussion. There was incidental finding of cholelithiasis but this does not appear to be related to his pain today. Patient was hydrated with a liter of IV fluid. Ativan was given to help him with the social anxiety while he waited for tests and results. Diagnostic Imaging Diagonstic Imaging: CT Plain Films/CT/US/NM/MRI: abdomen, pelvis Comments NAME: OLYA LUNA [facility] REC#: [id number] PT STATUS: REG ER : 1985 PHYSICIAN: GEOVANNI LAW MD ADMIT DATE: 06/23/23/ER Signed Date of Exam:06/23/23 CT ABDOMEN/PELVIS W PROCEDURE: CT abdomen and pelvis with contrast. TECHNIQUE: Multiple contiguous axial images were obtained through the abdomen and pelvis after administration of intravenous contrast. Auto Exposure Controls were utilized during the CT exam to meet ALARA standards for radiation dose reduction. All CT scans use one or more of the following dose optimizing techniques: automated exposure control, MA and/or KvP adjustment based on patient size and exam type or iterative reconstruction. INDICATION: Abdominal and pelvic injury and pain in the left posterior iliac region. COMPARISON: No prior studies are available for comparison. FINDINGS: The lung bases are clear. The liver is unremarkable. Gallbladder contains small stones. The pancreas and spleen are unremarkable. No adrenal mass is detected. Kidneys are unremarkable. Aorta is nonaneurysmal. The small and large bowel loops are normal in caliber. There is no obstruction. No free fluid or evidence of hemoperitoneum is identified. Bladder and prostate are unremarkable. The bony structures are nonacute. No superficial soft tissue fluid collection or hematoma is detected. There is minimal nonspecific stranding in the fat at the level of the left iliac crest and upper buttock region. IMPRESSION: 1. Minimal stranding noted in the fat at the level of the left iliac crest, perhaps small area of ecchymosis. No fluid collection or hematoma is identified. There is no evidence of abdominal or pelvic visceral injury. 2. Cholelithiasis. Dictated by: Dictated on workstation # [id number] Dict: 06/23/23 1306 Trans: 06/23/23 1553 [id number] Interpreted by: ALEX KRUGER MD Electronically signed by: ALEX KRUGER MD 06/23/23 1553 Departure Impression Primary Impression: Alcohol intoxication Qualified Codes: F10.929 - Alcohol use, unspecified with intoxication, unspecified Additional Impressions: Contusion of iliac crest Qualified Codes: S30.1XXA - Contusion of abdominal wall, initial encounter Social anxiety disorder Disposition: HOME, SELF-CARE Condition: Improved ( ) Departure-Patient Inst. Decision time for Depature: 13:39 Referrals: [facility] [place] (PCP/Family) Primary Care Physician Patient Instructions: ALCOHOL AND SUBSTANCE ABUSE, Contusion (DC) Add. Discharge Instructions: You have a bruise on your left lower back, but no serious injuries were identified on the CT scan. You may take Tylenol up to 1000 mg every 6 hours as needed and/or ibuprofen up to 600 mg every 6 hours as needed to treat your pain. Avoid drinking alcohol in excess. Gradually taper down on your alcohol consumpt ion and work toward quitting. Avoid stopping alcohol completely in an abrupt fashion as this may cause a dangerous withdrawal that may include seizures and may be life-threatening. Establish with a primary care provider soon as possible for your general health care. Return to the emergency room if you have worsening symptoms despite following these instructions. All discharge instructions reviewed with patient and/or family. Voiced understanding. GEOVANNI LAW MD Jun 23, 2023 11:52
[2023-06-23 11:54] LABS: ALKALINE PHOSPHATASE 49 U/L (40-136); CREATININE SERUM 0.98 MG/DL (0.60-1.30); GFR ESTIMATED 101
[2023-06-23 11:55] LABS: BUN/CREATININE RATIO 14
[2023-06-23 11:57] LABS: ALANINE AMINOTRANSFERASE 26 U/L (0-55); MAGNESIUM 2.3 MG/DL (1.6-2.4); SALICYLATE < 5.0 MG/DL (5.0-20.0)
[2023-06-23 11:58] LABS: BACTERIA,URINE NEGATIVE /HPF; BILIRUBIN,URINE NEGATIVE (NEGATIVE); CLARITY,URINE CLEAR; COLOR,URINE YELLOW; GLUCOSE, URINE (UA) NEGATIVE (NEGATIVE); KETONES,URINE NEGATIVE (NEGATIVE); LEUKOCYTE ESTERASE ,URINE NEGATIVE (NEGATIVE); NITRITE,URINE NEGATIVE (NEGATIVE); PH,URINE 5.5 (5-9); PROTEIN,URINE NEGATIVE (NEGATIVE)
[2023-06-23 11:58] LABS: LIPASE 50 U/L (8-78)
[2023-06-23 12:02] LABS: ACETAMINOPHEN < 10 UG/ML (10-30)
[2023-06-23 12:05] LABS: AMPHETAMINE SCREEN, URINE NEGATIVE (NEGATIVE); BARBITURATE SCREEN URINE NEGATIVE (NEGATIVE); CANNABINOID SCREEN, URINE NEGATIVE (NEGATIVE); COCAINE SCREEN URINE NEGATIVE (NEGATIVE); METHADONE STAT NEGATIVE (NEGATIVE); OPIATE SCREEN URINE NEGATIVE (NEGATIVE); OXYCODONE STAT NEGATIVE (NEGATIVE); PROPOXYPHENE STAT NEGATIVE (NEGATIVE); TRICYCLIC ANTIDEPRESSANTS SCRE NEGATIVE (NEGATIVE)
[2023-06-23] MEDS ORDERED: HOLD METFORMIN - RECEIVED CONTRAST 20 ML VIAL IV SCH (12:45)
[2023-06-23] MEDS ORDERED: NS 100 ML (IVPB) BAG IV ONE (12:45)
[2023-06-23] MEDS ORDERED: IOHEXOL 350 MG/ML 100 ML (OMNIPAQUE 350) VIAL IV ONE (12:45)
--- NOTE | 2023-06-23 13:19 | Diagnostic Imaging Report ---
PROCEDURE: CT abdomen and pelvis with contrast. TECHNIQUE: Multiple contiguous axial images were obtained through the abdomen and pelvis after administration of intravenous contrast. Auto Exposure Controls were utilized during the CT exam to meet ALARA standards for radiation dose reduction. All CT scans use one or more of the following dose optimizing techniques: automated exposure control, MA and/or KvP adjustment based on patient size and exam type or iterative reconstruction. INDICATION: Abdominal and pelvic injury and pain in the left posterior iliac region. COMPARISON: No prior studies are available for comparison. FINDINGS: The lung bases are clear. The liver is unremarkable. Gallbladder contains small stones. The pancreas and spleen are unremarkable. No adrenal mass is detected. Kidneys are unremarkable. Aorta is nonaneurysmal. The small and large bowel loops are normal in caliber. There is no obstruction. No free fluid or evidence of hemoperitoneum is identified. Bladder and prostate are unremarkable. The bony structures are nonacute. No superficial soft tissue fluid collection or hematoma is detected. There is minimal nonspecific stranding in the fat at the level of the left iliac crest and upper buttock region. IMPRESSION: 1. Minimal stranding noted in the fat at the level of the left iliac crest, perhaps small area of ecchymosis. No fluid collection or hematoma is identified. There is no evidence of abdominal or pelvic visceral injury. 2. Cholelithiasis. Dictated by: Dictated on workstation # [id number]
[2023-06-23] MEDS ORDERED: KETOROLAC INJ 30 MG/ML VIAL IVP ONE (13:45)
[2023-06-23 14:24] VITALS: BP 128/82
== END 2023-06-23 14:24 | disposition home or self-care (01) ==
LOC: EDUNIT# 11:03 → ER 11:04
DX: S30.1XXA Contusion of abdominal wall, initial encounter (principal); F10.129 Alcohol abuse with intoxication, unspecified; F41.9 Anxiety disorder, unspecified; Z87.891 Personal history of nicotine dependence; X58.XXXA Exposure to other specified factors, initial encounter
CPT/HCPCS: 74177; 80053; 80306; 81000; 83690; 83735; 85025; 99284; G0480 ×3; 36415; 80320; 80329

== ENCOUNTER 2023-07-05 06:13 | Emergency (ER) | payer MEDICARE, MEDICAID ==
[~2023-07-05] VITALS: Ht 172 cm; Wt 72.0 kg
[2023-07-05] MEDS ORDERED: KETOROLAC INJ 30 MG/ML VIAL IVP STA (07:23)
[2023-07-05] MEDS ORDERED: ALPRAZolam 0.5 MG TABLET PO STA (07:23)
--- NOTE | 2023-07-05 07:40 | ED Back Pain ---
General Chief Complaint: Back Problems Stated Complaint: BACK PX Source of Information: Patient Exam Limitations: No Limitations History of Present Illness Date Seen by Provider: Jul 05, 2023 Time Seen by Provider: 07:15 Initial Comments Report of left low back pain that he states is burning and pinches and feels occasionally numb. Also has been complaining of frequency of urination at nighttime for the last couple of months. States that he is feeling [place] bad and something must be going on. Does have history of mental health disorder including anxiety and agoraphobia. States that he must be sick since he had to get out of the house. Follows with [facility]. Denies nausea, vomiting or diarrhea. Denies blood in his urine or stool. Denies difficulty with movement, weakness or numbness between his legs. Reports that there is a Jell-O-like blob on his left low back that he can feel. Location: Lumbar Spine, Paraspinous Muscles Severity: Moderate Pain/Injury Location: Back (Low left side) Radiation: Buttocks (Left) Method of Injury: Unknown Associated Symptoms: No muscle spasms, No fever; weakness; No numbness in legs/feet, No tingling in legs/feet, No sensory/motor loss; lower back pain; No loss of bladder control, No loss of bowel control Allergies and Home Medications Allergies Coded Allergies: No Known Drug Allergies (Unverified , 12/15/19) Patient Home Medication List Home Medication List Reviewed: Yes Buspirone HCl (Buspirone HCl) 5 Mg Tablet, 5 MG PO BID, (Reported) Entered as Reported by: FILIBERTO HARRIS on 12/26/201458 Lisinopril (Lisinopril) 40 Mg Tablet, 40 MG PO DAILY, (Reported) Entered as Reported by: FILIBERTO HARRIS on 12/26/201458 Metoprolol Succinate (Metoprolol Succinate) 50 Mg Tab.er.24h, 50 MG PO DAILY, (Reported) Entered as Reported by: FILIBERTO HARRIS on 12/26/201458 Multivitamin (Multivitamin) 1 Each Tablet, 1 EACH PO DAILY, (Reported) Entered as Reported by: FILIBERTO HARRIS on 12/26/201458 Pantoprazole Sodium (Pantoprazole Sodium) 20 Mg Tablet.dr, 20 MG PO DAILY, (Reported) Entered as Reported by: FILIBERTO HARRIS on 12/26/201458 Trazodone HCl (Trazodone HCl) 100 Mg Tablet, 100 MG PO HS, (Reported) Entered as Reported by: FILIBERTO HARRIS on 12/26/201458 [Florajen Pre] , 1 EA PO DAILY, (Reported) Entered as Reported by: FILIBERTO HARRIS on 12/26/201458 [Rhin Allergy ] , 1 EACH PO UD PRN for ALLERGY SYMPTOMS, (Reported) Entered as Reported by: FILIBERTO HARRIS on 12/26/201458 Review of Systems Constitutional: see HPI EENTM: No nose congestion Respiratory: No cough Cardiovascular: no symptoms reported Gastrointestinal: No nausea, No vomiting Genitourinary: frequency Musculoskeletal: back pain, muscle pain Skin: no symptoms reported Psychiatric/Neurological: See HPI, Anxiety Past Ymgyugr-Cjyaxr-[id number] Hx Patient Social History Tobacco Use?: No Use of E-Cig and/or Vaping dev: Yes E-Cig or Vaping type used: Nicotine Use of E-Cig and/or Vaping [place]: Current Everyday User Substance use?: Yes Substance type: Marijuana Substance frequency: Once in a while Alcohol Use?: Yes Alcohol Frequency: Once in a while Seasonal Allergies Seasonal Allergies: Yes Past Medical History Surgery/Hospitalization HX: PMH: HTN, SLEEP. ANXIETY Surgeries: Yes Abdominal, Gallbladder, Orthopedic Respiratory: No Cardiac: Yes Hypertension Neurological: No Genitourinary: No Bladder Infection Gastrointestinal: Yes Gastroesophageal Reflux, Gastrointestinal Bleed Musculoskeletal: Yes Scoliosis Endocrine: No HEENT: No Loss of Vision: Denies Hearing Impairment: Denies Cancer: No Psychosocial: Yes ("Agoraphobia", daily alcohol use) Depression Integumentary: No Family Medical History Reviewed Nursing Family Hx Cancer, Diabetes, Hypertension Physical Exam Vital Signs Vital Signs - First Documented 07/05/23 06:15 Temp 37.0 Pulse 76 Resp 16 B/P (MAP) 127/90 (102) Pulse Ox 100 O2 Delivery Room Air Capillary Refill : Height, Weight, BMI Height: '" Weight: lbs. oz. kg; 25.00 BMI Method: General Appearance: No Apparent Distress, WD/WN Neck: Non Tender, Supple Cardiovascular: Regular Rate, Rhythm, No Murmur Respiratory: Lungs Clear, Normal Breath Sounds Gastrointestinal: Non Tender, Soft Back: No CVA Tenderness, No Vertebral Tenderness, Other (Tenderness to the SI joint area on the left on palpation. There are no visible rash, lumps, swelling, ecchymosis or any other abnormal finding in this area on exam) Extremity: Normal Inspection, Normal Range of Motion, Non Tender Neurologic/Psychiatric: Alert, Oriented x3 Skin: Normal Color, Warm/Dry Progress/Results/Core Measures Results/Orders Lab Results Laboratory Tests Test 07/05/23 06:34 07/05/23 07:40 Range/Units Urine Color ORANGE Urine Clarity CLEAR Urine pH 5.5 5-9 Urine Specific [place] >=1.030 1.016-1.022 Urine Protein TRACE H NEGATIVE Urine Glucose (UA) NEGATIVE NEGATIVE Urine Ketones TRACE H NEGATIVE Urine Nitrite NEGATIVE NEGATIVE Urine Bilirubin 1+ H NEGATIVE Urine Urobilinogen 0.2 < = 1.0 MG/DL Urine Leukocyte Esterase NEGATIVE NEGATIVE Urine RBC (Auto) NEGATIVE NEGATIVE Urine RBC NONE /HPF Urine WBC NONE /HPF Urine Squamous Epithelial Cells RARE /HPF Urine Crystals PRESENT H /LPF Urine Calcium Oxalate Crystals RARE H /LPF Urine Amorphous Sediment RARE MORGAN URATES H /LPF Urine Bacteria NEGATIVE /HPF Urine Casts NONE /LPF Urine Mucus LARGE H /LPF Urine Culture Indicated NO White Blood Count 4.7 4.3-11.0 10^3/uL Red Blood Count 3.89 L 4.30-5.52 10^6/uL Hemoglobin 13.5 13.3-17.7 g/dL Hematocrit 39 L 40-54 % Mean Corpuscular Volume 100 H 80-99 fL Mean Corpuscular Hemoglobin 35 H 25-34 pg Mean Corpuscular Hemoglobin Concent 35 32-36 g/dL Red Cell Distribution Width 12.5 10.0-14.5 % Platelet Count 198 130-400 10^3/uL Mean Platelet Volume 8.6 L 9.0-12.2 fL Immature Granulocyte % (Auto) 1 % Neutrophils (%) (Auto) 63 42-75 % Lymphocytes (%) (Auto) 23 12-44 % Monocytes (%) (Auto) 11 0-12 % Eosinophils (%) (Auto) 1 0-10 % Basophils (%) (Auto) 1 0-10 % Neutrophils # (Auto) 3.0 1.8-7.8 10^3/uL Lymphocytes # (Auto) 1.1 1.0-4.0 10^3/uL Monocytes # (Auto) 0.5 0.0-1.0 10^3/uL Eosinophils # (Auto) 0.1 0.0-0.3 10^3/uL Basophils # (Auto) 0.0 0.0-0.1 10^3/uL Immature Granulocyte # (Auto) 0.0 0.0-0.1 10^3/uL Sodium Level 133 L 135-145 MMOL/L Potassium Level 3.9 3.6-5.0 MMOL/L Chloride Level 98 98-107 MMOL/L Carbon Dioxide Level 25 21-32 MMOL/L Anion Gap 10 5-14 MMOL/L Blood Urea Nitrogen 9 7-18 MG/DL Creatinine 0.87 0.60-1.30 MG/DL Estimat Glomerular Filtration Rate 113 BUN/Creatinine Ratio 10 Glucose Level 101 70-105 MG/DL Calcium Level 8.8 8.5-10.1 MG/DL Corrected Calcium 8.6 8.5-10.1 MG/DL Total Bilirubin 1.3 H 0.1-1.0 MG/DL Aspartate Amino Transf (AST/SGOT) 18 5-34 U/L Alanine Aminotransferase (ALT/SGPT) 23 0-55 U/L Alkaline Phosphatase 54 40-136 U/L C-Reactive Protein High Sensitivity 0.05 0.00-0.50 MG/DL Total Protein 6.7 6.4-8.2 GM/DL Albumin 4.2 3.2-4.5 GM/DL My Orders Orders - ELO SEGUNDO MD Cbc And Automated Diff (07/05/23 07:23) Comprehensive Metabolic Panel (07/05/23 07:23) Hs C Reactive Protein (07/05/23 07:23) Ua Culture If Indicated (07/05/23 07:23) Ed Iv/Invasive Line Start (07/05/23 07:23) Ketorolac Injection (Ketorolac Injection (07/05/23 07:23) Alprazolam Tablet (Alprazolam Tablet) (07/05/23 07:23) Ns Iv 1000 Ml (Ns Iv 1000 Ml) (07/05/23 08:45) Hydrocodone/Apap 5/325 Tablet (Hydrocod (07/05/23 09:15) Medications Given in ED Current Medications Medications Dose Ordered Sig/Sean Route Start Time Stop Time Status Last Admin Dose Admin Acetaminophen/ Hydrocodone Bitart 1 ea ONCE ONCE PO 07/05/23 09:15 07/05/23 09:16 DC 07/05/23 09:19 1 EA Sodium Chloride 1,000 ml @ 0 mls/hr Q0M ONCE IV 07/05/23 08:45 07/05/23 08:46 DC 07/05/23 08:44 999 MLS/HR Vital Signs/I&O 07/05/23 06:15 Temp 37.0 Pulse 76 Resp 16 B/P (MAP) 127/90 (102) Pulse Ox 100 O2 Delivery Room Air Progress Progress Note : Progress Note Seen and evaluated. We will go ahead and do IV and check basic labs including CBC, CMP, CRP and UA given patient's insistence that something must be going wrong. We will give Toradol 30 mg IV for pain and Xanax 0.5 mg p.o. for anxiety. Monitor patient. Differential diagnosis includes UTI, kidney stone, musculoskeletal pain, sci atica 1026: CBC reviewed and shows no significant abnormality. UA did show concentration and we did order normal saline 1 L bolus. CMP was grossly unremarkable with nonconcerning CRP. I did give hydrocodone 1 tab 5/325 mg p.o. for pain. He is up and without difficulty. He does report that he had a fall a couple weeks ago is wondering if that may be the cause of this. His symptoms and findings are more consistent with sciatica and I believe that is what he has. We will go ahead and give prednisone 40 mg p.o. now. Did discuss consideration for CT scan which we will hold at this point given that his labs are normal and he is moving without difficulty. Patient could consider outpatient MRI if things are not improving or if there is worsening. This was discussed with the patient and he verbalized understanding. He will follow-up with [facility]. I will write short course of prednisone as well as a few pain tablets. We are working on a ride home now. Discharged home with return precautions. Patient verbalized understanding of instructions and agreement with plan. Departure Impression Primary Impression: Sciatica, left side Disposition: 01 HOME, SELF-CARE Condition: Stable Departure-Patient Inst. Decision time for Depature: 10:28 Referrals: [facility] (PCP/Family) Primary Care Physician Patient Instructions: Sciatica ED Add. Discharge Instructions: All discharge instructions reviewed with patient and/or family. Voiced understanding. Take medications as directed. You may take ibuprofen 600 mg every 8 hours as ne eded for pain. You may also take Tylenol/acetaminophen 1000 mg every 8 hours as needed for pain. Do not take Tylenol/acetaminophen with the prescribed pain medicine as they both have acetaminophen in them. Your doctor for recheck and further evaluation. Return for worse pain, fever, vomiting, weakness, numbness between your legs, difficulty with walking or going to the bathroom or other concerns as needed. Scripts Prednisone (Prednisone) 20 Mg Tab 40 MG PO DAILY, #8 TAB 0 Refills Prov: ELO SEGUNDO MD 07/05/23 Hydrocodone/Acetaminophen (Hydrocodone-Acetamin 5-325 mg) 5 Mg-325 Mg Tablet 1 TAB PO Q6H PRN for PAIN-MODERATE (5-7) for 7 Days, #8 TAB 0 Refills Prov: ELO SEGUNDO MD 07/05/23 ELO SEGUNDO MD Jul 05, 2023 07:40
[2023-07-05 07:54] LABS: BASOPHILS % (AUTO) 1 % (0-10); EOSINOPHILS # (AUTO) 0.1 10^3/uL (0.0-0.3); EOSINOPHILS % (AUTO) 1 % (0-10); HEMATOCRIT 39 % (40-54); HEMOGLOBIN 13.5 g/dL (13.3-17.7); LYMPHOCYTES # (AUTO) 1.1 10^3/uL (1.0-4.0); LYMPHOCYTES % (AUTO) 23 % (12-44); MEAN CORPUSCULAR HEMOGLOBIN 35 pg (25-34); MEAN CORPUSCULAR HGB CONC 35 g/dL (32-36); MEAN CORPUSCULAR VOLUME 100 fL (80-99); MEAN PLATELET VOLUME 8.6 fL (9.0-12.2); MONOCYTES # (AUTO) 0.5 10^3/uL (0.0-1.0); MONOCYTES % (AUTO) 11 % (0-12); NEUTROPHILS % (AUTO) 63 % (42-75); PLATELET COUNT 198 10^3/uL (130-400); WHITE BLOOD COUNT 4.7 10^3/uL (4.3-11.0)
[2023-07-05 08:06] LABS: CLARITY,URINE CLEAR; COLOR,URINE ORANGE; PH,URINE 5.5 (5-9)
[2023-07-05 08:07] LABS: BILIRUBIN,URINE 1+ (NEGATIVE); GLUCOSE, URINE (UA) NEGATIVE (NEGATIVE); KETONES,URINE TRACE (NEGATIVE); LEUKOCYTE ESTERASE ,URINE NEGATIVE (NEGATIVE); NITRITE,URINE NEGATIVE (NEGATIVE); PROTEIN,URINE TRACE (NEGATIVE)
[2023-07-05 08:09] LABS: AMORPHOUS SEDIMENT,UR RARE AMOR URATES /LPF; BACTERIA,URINE NEGATIVE /HPF; CALCIUM OXALATE CRYSTALS,UR RARE /LPF; SQUAMOUS EPITHELIAL CELL,UR RARE /HPF
[2023-07-05 08:09] LABS: ALBUMIN 4.2 GM/DL (3.2-4.5); POTASSIUM 3.9 MMOL/L (3.6-5.0)
[2023-07-05 08:11] LABS: CALCIUM 8.8 MG/DL (8.5-10.1)
[2023-07-05 08:12] LABS: TOTAL PROTEIN 6.7 GM/DL (6.4-8.2)
[2023-07-05 08:14] LABS: BILIRUBIN,TOTAL 1.3 MG/DL (0.1-1.0)
[2023-07-05 08:16] LABS: CREATININE SERUM 0.87 MG/DL (0.60-1.30)
[2023-07-05] MEDS ORDERED: NS IV 1000 ML 1,000 ML IV ONE (08:45)
[2023-07-05] MEDS ORDERED: HYDROcodone/ACETAMINOPHEN 5 MG/325 MG TABLET PO ONE (09:15)
[2023-07-05] MEDS ORDERED: ACHD5005 PO (10:30)
[2023-07-05] MEDS ORDERED: predniSONE 20 MG TABLET PO ONE (10:30)
[2023-07-05] MEDS ORDERED: PRD20T PO (10:30)
[2023-07-05 11:27] VITALS: BP 136/79
== END 2023-07-05 11:26 | disposition home or self-care (01) ==
LOC: EDUNIT# 06:13 → ER 06:15
DX: M54.42 Lumbago with sciatica, left side (principal); F17.290 Nicotine dependence, other tobacco product, uncomplicated
CPT/HCPCS: 36415; 80053; 81000; 85025; 86141

== ENCOUNTER 2023-07-05 12:23 | Emergency (ER) | payer MEDICARE, MEDICAID ==
[~2023-07-05] VITALS: Ht 170 cm; Wt 70.0 kg
[~2023-07-05 12:23] MED LIST changes: +ACHD5005 PO; +PRD20T PO
[2023-07-05 12:45] VITALS: BP 144/80
== END 2023-07-05 13:08 | disposition left against medical advice (07) ==
LOC: EDUNIT# 12:23 → ER 12:25
DX: F40.00 Agoraphobia, unspecified (principal)
CPT/HCPCS: 99281